=== PATIENT | male | born 1965 | race Two or more races ===

== ENCOUNTER 2018-04-24 17:40 | Observation (INO) ==
[2018-04-24] MEDS ORDERED: Dextrose 50% in Water 50 ML Vial IV.PUSH PRN (22:18)
[2018-04-25] MEDS: Morphine Inj 4 MG/ML Vial IV.PUSH PRN ×3 (00:06→23:21)
[2018-04-25] MEDS: Sod Chloride 0.9% Inj 1,000 ML IV.CONT SCH ×2 (00:06→12:45)
[2018-04-25] MEDS: Acetaminophen 500 MG Tablet PO PRN (00:28)
[2018-04-25 01:17] LABS: Troponin I 0.08 ng/mL (0.02-0.05)
[2018-04-25] MEDS: Insulin NovoLOG Aspart Correctional Sugar Inj SQ SCH ×5 (03:45→23:08)
[2018-04-25 07:32] LABS: Baso % (Auto) 0.4 % (0.0-2.0); Eos % (Auto) 0.4 % (0.0-4.0); Hematocrit 33.7 % (39.0-51.0); Hemoglobin 11.3 gm/dL (13.0-17.0); Lymph # (Auto) 0.5 th/mm3 (1.0-4.8); Lymph % (Auto) 8.7 % (9.0-44.0); Mean Corpuscular HGB Conc 33.5 % (32.0-36.0); Mean Corpuscular Hemoglobin 27.4 pg (27.0-34.0); Mean Corpuscular Volume 81.7 fL (80.0-100.0); Mean Platelet Volume 10.7 fL (7.0-11.0); Mono # (Auto) 0.6 th/mm3 (0.0-0.9); Mono % (Auto) 9.8 % (0.0-8.0); Neut # (Auto) 4.6 th/mm3 (1.8-7.7); Neut % (Auto) 80.7 % (16.0-70.0); Platelet Count 23 th/mm3 (150-450); Red Blood Count 4.13 mil/mm3 (4.50-5.90); Red Cell Distribution Width 15.3 % (11.6-17.2); White Blood Count 5.7 th/mm3 (4.0-11.0)
[2018-04-25 07:47] LABS: Potassium 3.5 meq/L (3.5-5.1)
[2018-04-25 07:53] LABS: Calcium 7.9 mg/dL (8.5-10.1)
[2018-04-25 08:01] LABS: Troponin I 0.06 ng/mL (0.02-0.05)
--- NOTE | 2018-04-25 08:37 | P.HPIM ---
History of Present Illness Primary Care Physician: Leslie Arita Chief Complaint: ' my sugar was high'. History of Present Illness: patient is a 53 y/o male with history of Cirrhosis,diabetes and hypertension who initially presented to ER with abdominal pain two days ago. he says the he received pain medication and a dose of antibiotic and then was discharged home. he says that he woke up yesterday morning and noticed that his blood sugar was 560. he drank lots of fluid but he says that he didn't take his metformin because of the IV contrast that he received the day before. he says that he checked his blood sugar again and when it was read as high he came back to ER. he says that he had some right sided chest pain. he denies any nausea, vomiting , diaphoresis. he says that he had some lower abdominal pain which somewhat improved. he denies any urinary complaints. Review of Systems All other systems reviewed negative except as stated in HPI PMFSH - History History Provided By: Patient - Medical History Medical History: Medical History (Last Reviewed 04/24/18 @ 17:53 by Airam Clarke RN) Diabetes HBP (high blood pressure) Liver cirrhosis Neuropathy Patella-femoral syndrome Platelet disorder Spleen disease - Surgical History Surgical History: Surgical History (Last Reviewed 04/24/18 @ 17:53 by Airam Clarke RN) No history of previous surgery - Family History Family History: Family History (Last Updated 04/25/18 @ 08:26 by Rigo Torres MD) Other No pertinent family history - Tobacco History Second Hand Smoke Exposure: No Smoking Status: Never smoker - Alcohol History How Often Do You Have a Drink Containing Alcohol: Monthly or less - Substance Use History Substance History: No History of Abuse Medications and Allergies Active Medications: Active Medications Acetaminophen (Tylenol) 500 mg PO Q4H PRN PRN Reason: HEADACHE Last Admin: 04/25/18 00:28 Dose: 500 mg Hydrocodone Bitart/Acetaminophen ([place] 7.5/325) 1 tab PO Q4H PRN PRN Reason: PAIN SCALE 1 TO 5 Dextrose (D50w Vial) 50 ml IV.PUSH UNSCH PRN PRN Reason: PER HYPOGLYCEMIA PROTOCOL Glucagon (Glucagon Inj) 1 mg OTHER PRN PRN PRN Reason: for Hypoglycemia Protocol Sodium Chloride (Ns Inj) 1,000 mls @ 100 mls/hr IV.CONT .Q10H LUCIO Last Admin: 04/25/18 00:06 Dose: 100 mls/hr Ceftriaxone Sodium 1,000 mg/ (Sodium Chloride) 100 mls @ 200 mls/hr IV.SIG Q24H LUCIO Last Infusion: 04/25/18 00:48 Dose: Infused Insulin Aspart (Novolog Insulin Correctional Sugar Inj) 0 unit SQ ACHS AND 3AM LUCIO; Protocol Last Admin: 04/25/18 03:45 Dose: 9 unit Morphine Sulfate (Morphine Inj) 2 mg IV.PUSH Q4H PRN PRN Reason: PAIN SCALE 6 TO 10 Last Admin: 04/25/18 03:42 Dose: 2 mg Nitroglycerin (Nitrostat Sl) 0.4 mg SL Q5M PRN PRN Reason: ANGINA Sodium Chloride (Ns Flush) 2 ml IV.FLUSH BID LUCIO Sodium Chloride (Ns Flush) 2 ml IV.FLUSH PRN PRN PRN Reason: FLUSH AFTER USING IV ACCESS Allergies Allergy/AdvReac Type Severity Reaction Status Date / Time No Known Allergies Allergy Verified 04/24/18 17:51 Home Medications Medication Instructions Recorded Confirmed Type gabapentin 300 mg PO DAILY 04/23/18 04/24/18 History lisinopril-hydrochlorothiazide 1 tab PO DAILY 04/23/18 04/24/18 History metformin 1,000 mg PO BID 04/23/18 04/24/18 History quetiapine [Seroquel] 200 mg PO DAILY 04/23/18 04/24/18 History Exam Vital signs: Vital Signs 04/25/18 00:00 04/25/18 00:59 04/25/18 03:58 Temperature 101.4 F H 99.0 F Pulse Rate 99 H 99 H 84 Respiratory Rate 18 18 Blood Pressure 121/56 L 108/60 Pulse Oximetry 94 L 95 Intake & Output 04/24/18 04/25/18 04/25/18 18:59 06:59 18:59 Intake Total 100 / 100 Balance 100 / 100 Weight 147 kg Intake: IV 100 / 100 Rocephin Inj 1,000 MG In NS Inj 100 / 100 100 ML @ 200 mls/hr IV.SIG Q24H LUCIO Rx#:[id number] Other: # Voids 4 Weight On Admission 147 kg - Constitutional no acute distress - Routine HEENT Exam Eye: Present: PERRL - Routine Neck Exam Present: supple - Routine Respiratory Exam Present: CTA bilaterally - Routine Cardiovascular Exam Present: RRR - Routine Abdominal Exam Present: soft - Routine Extremities Exam Comments: no pedal edema. - Routine Neurological Exam Present: alert, oriented X3 Results - Labs CBC & Chem 7: 04/25/18 07:00 04/25/18 07:00 Labs: Short CBC 04/25/18 Range/Units 07:00 WBC 5.7 (4.0-11.0) th/mm3 Hgb 11.3 L (13.0-17.0) gm/dL Hct 33.7 L (39.0-51.0) % Plt Count 23 L D (150-450) th/mm3 BMP 04/25/18 07:00 Sodium 131 L Potassium 3.5 Chloride 97 L Carbon Dioxide 26.0 BUN 17 Creatinine 1.40 H Calcium 7.9 L D Cardiac Enzymes 04/25/18 04/25/18 Range/Units 00:43 07:00 Total Creatine Kinase 63 50 (39-308) U/L Troponin I 0.08 H 0.06 H (0.02-0.05) ng/mL Caprini VTE Risk Assessment Caprini VTE Risk Assessment: Moderate/High Risk (score >= 2) VTE Pharmacological Exception Reason: High risk for bleeding Caprini Risk Assessment Model: Point Value = 1 Point Value = 2 Point Value = 3 Point Value = 5 Age 41-60 Minor surgery BMI > 25 kg/m2 Swollen legs Varicose veins or History of unexplained or recurrent spontaneous Oral contraceptives or hormone replacement Sepsis (< 1 month) Serious lung disease, including pneumonia (< 1 month) Abnormal pulmonary function Acute myocardial infarction Congestive heart failure (< 1 month) History of inflammatory bowel disease Medical patient at bed rest Age 61-74 Arthroscopic surgery Major open surgery (> 45 min) Laparoscopic surgery (> 45 min) Malignancy Confined to bed (> 72 hours) Immobilizing plaster cast Central venous access Age >= 75 History of VTE Family history of VTE Factor V Leiden Prothrombin [id number] Lupus anticoagulant Anticardiolipin antibodies Elevated serum homocysteine Heparin-induced thrombocytopenia Other congenital or acquired thrombophilia Stroke (< 1 month) Elective arthroplasty Hip, pelvis, or leg fracture Acute spinal cord injury (< 1 month) Prophylaxis Regimen: Total Risk Factor Score Risk Level Prophylaxis Regimen 0-1 Low Early ambulation 2 Moderate Order ONE of the following: *Sequential Compression Device (SCD) *Heparin 5000 units SQ BID 3-4 Higher Order ONE of the following medications: *Heparin 5000 units SQ TID *Enoxaparin/Lovenox 40 mg SQ daily (WT < 150 kg, CrCl > 30 mL/min) *Enoxaparin/Lovenox 30 mg SQ daily (WT < 150 kg, CrCl > 10-29 mL/min) *Enoxaparin/Lovenox 30 mg SQ BID (WT < 150 kg, CrCl > 30 mL/min) AND/OR *Sequential Compression Device (SCD) 5 or more Highest Order ONE of the following medications: *Heparin 5000 units SQ TID (Preferred with Epidurals) *Enoxaparin/Lovenox 40 mg SQ daily (WT < 150 kg, CrCl > 30 mL/min) *Enoxaparin/Lovenox 30 mg SQ daily (WT < 150 kg, CrCl > 10-29 mL/min) *Enoxaparin/Lovenox 30 mg SQ BID (WT < 150 kg, CrCl > 30 mL/min) AND *Sequential Compression Device (SCD) Assessment and Plan - Plan A/P - fever- possible UTI will continue with IV antibiotic- will check CXR and follow the cultures. recent abdominal CT with no acute intraabdominal abnormality. will repeat the blood cultures and consult ID if fever persists. -thrombocytopenia due to Cirrhosis- will consult hematology and continue to monitor. -diabetes mellitus- continue with accu-check with SSI -Cirrhosis- being f/u by GI as outpatient. -hypertension; hold lisinopril and continue to monitor the BP -acute kidney injury; improving; continue IV fluid and monitor. -DVT prophylaxis with SCD's- no chemical prophylaxis due to liver disease. Discussed Condition With: the patient.
[2018-04-25 08:46] LABS: Ovalocytes 1+; Platelet Morphology Normal (Normal)
[2018-04-25] MEDS ORDERED: Aspirin 325 MG Tablet PO SCH (09:00)
--- NOTE | 2018-04-25 10:58 | XR ---
EXAM DATE: 04/25/2018 12:00 AM EDT AGE/SEX: 53 years / Male INDICATIONS: Fever, chest pain. CLINICAL DATA: This is the patient's subsequent encounter. Patient reports that signs and symptoms h ave been present for 3 days and indicates a pain score of 7/10. MEDICAL/SURGICAL HISTORY: Diabetes. Cirrhosis. Hypertension. Neuropathy. Platlet disorder. S pleen disease. Patella-femoral syndrome. None. COMPARISON: [facility], CHEST SINGLE AP, 11/22/2017. . FINDINGS: The heart is enlarged. Mild interstitial edema is present. There is no evidence consolidation, pneumo thorax or pleural effusion. The portion of the bony skeleton visualized is unremarkable. CONCLUSION: Mild congestive failure. No alveolar consolidation to suggest an inflammatory process. Electronically signed by: Dave Waterman MD 04/25/2018 10:57 AM EDT
[2018-04-25 11:02] LABS: Chol/HDL Ratio 4.63 Ratio; HDL Cholesterol 19.4 mg/dL (40.0-60.0)
--- NOTE | 2018-04-25 14:01 | ECG ---
Date Performed: 04/25/2018 Time Performed: 07:03:59 PTAGE: 53 years EKG: Sinus rhythm NONSPECIFIC T-WAVE ABNORMALITY BORDERLINE ECG PREVIOUS TRACING : 04/25/2018 01.14 DOCTOR: Kendall Aden M.D. Interpretating Date/Time 04/25/2018 14:00:21
--- NOTE | 2018-04-25 17:16 | P.CON ---
History of Present Illness Service: Hematology Consult date: 04/25/18 Reason for Consult: Willy Primary Care Provider: Leslie Arita Chief Complaint: Evaluation of thrombocytopenia. History of Present Illness: 53-year-old gentleman with multiple medical problems including non- alcoholic cirrhosis, diabetes with complications including peripheral neuropathy and severe obesity was admitted with abdominal pain had low-grade fever and was found to have worsening thrombus cytopenia. He had a baseline platelet count of 50-60,000 from his history of cirrhosis and splenomegaly and has been followed by a washroom cleaner in [place] according to him. He had a bone marrow biopsy 2 years ago which was noncontributory per his description. I was asked to see him for his platelet count of 23,000. He is not bleeding specifically has no blood in the stool or black stools Mr. Yun is aware of his history of thrombocytopenia and risk of bleeding and hence he states that he is always on the look out for any bleeding he has not noted any. He did have low-grade fevers for the last couple of days and his blood cultures are pending at this time. [facility] - History History Provided By: Patient - Medical History Medical History: Medical History (Last Updated 04/25/18 @ 17:17 by Shon Hernandez MD) Liver cirrhosis (Acute) Diabetes HBP (high blood pressure) Neuropathy Patella-femoral syndrome Platelet disorder Spleen disease - Surgical History Surgical History: Surgical History (Last Reviewed 04/24/18 @ 17:53 by Airam Clarke RN) No history of previous surgery - Family History Family History: Family History (Last Updated 04/25/18 @ 08:26 by Rigo Torres MD) Other No pertinent family history - Tobacco History Second Hand Smoke Exposure: No Smoking Status: Never smoker - Alcohol History How Often Do You Have a Drink Containing Alcohol: Monthly or less - Substance Use History Substance History: No History of Abuse Medications and Allergies Active Medications: Active Medications Acetaminophen (Tylenol) 500 mg PO Q4H PRN PRN Reason: HEADACHE Last Admin: 04/25/18 00:28 Dose: 500 mg Hydrocodone Bitart/Acetaminophen ([place] 7.5/325) 1 tab PO Q4H PRN PRN Reason: PAIN SCALE 1 TO 5 Last Admin: 04/25/18 15:44 Dose: 1 tab Dextrose (D50w Vial) 50 ml IV.PUSH UNSCH PRN PRN Reason: PER HYPOGLYCEMIA PROTOCOL Gabapentin (Neurontin) 300 mg PO DAILY LUCIO Glucagon (Glucagon Inj) 1 mg OTHER PRN PRN PRN Reason: for Hypoglycemia Protocol Sodium Chloride (Ns Inj) 1,000 mls @ 100 mls/hr IV.CONT .Q10H LUCIO Last Admin: 04/25/18 12:45 Dose: 100 mls/hr Ceftriaxone Sodium 1,000 mg/ (Sodium Chloride) 100 mls @ 200 mls/hr IV.SIG Q24H LUCIO Last Infusion: 04/25/18 00:48 Dose: Infused Insulin Aspart (Novolog Insulin Correctional Sugar Inj) 0 unit SQ ACHS AND 3AM LUCIO; Protocol Last Admin: 04/25/18 17:12 Dose: 5 unit Insulin Detemir (Levemir Inj) 10 unit SQ HS LUCIO Morphine Sulfate (Morphine Inj) 2 mg IV.PUSH Q4H PRN PRN Reason: PAIN SCALE 6 TO 10 Last Admin: 04/25/18 03:42 Dose: 2 mg Nitroglycerin (Nitrostat Sl) 0.4 mg SL Q5M PRN PRN Reason: ANGINA Quetiapine Fumarate (Seroquel) 200 mg PO DAILY [facility] Sodium Chloride (Ns Flush) 2 ml IV.FLUSH BID LUCIO Last Admin: 04/25/18 08:40 Dose: Not Given Sodium Chloride (Ns Flush) 2 ml IV.FLUSH PRN PRN PRN Reason: FLUSH AFTER USING IV ACCESS Allergies Allergy/AdvReac Type Severity Reaction Status Date / Time No Known Allergies Allergy Verified 04/24/18 17:51 Home Medications Medication Instructions Recorded Confirmed Type gabapentin 300 mg PO DAILY 04/23/18 04/24/18 History lisinopril-hydrochlorothiazide 1 tab PO DAILY 04/23/18 04/24/18 History metformin 1,000 mg PO BID 04/23/18 04/24/18 History quetiapine [Seroquel] 200 mg PO DAILY 04/23/18 04/24/18 History Physical Exam Vital signs: Vital Signs 04/25/18 00:00 04/25/18 00:59 04/25/18 03:58 Temperature 101.4 F H 99.0 F Pulse Rate 99 H 99 H 84 Respiratory Rate 18 18 Blood Pressure 121/56 L 108/60 Pulse Oximetry 94 L 95 04/25/18 08:00 10/17/18 12:00 Temperature 100.2 F H 100.8 F H Pulse Rate 90 85 Respiratory Rate 22 20 Blood Pressure 137/71 132/71 Pulse Oximetry 98 97 Intake & Output 04/24/18 04/25/18 04/25/18 18:59 06:59 18:59 Intake Total 100 / 100 1000 / 1000 Balance 100 / 100 1000 / 1000 Weight 147 kg Intake: IV 100 / 100 1000 / 1000 NS Inj 1,000 ML @ 100 mls/hr IV 1000 / 1000 .CONT .Q10H LUCIO Rx#:[id number] Rocephin Inj 1,000 MG In NS Inj 100 / 100 100 ML @ 200 mls/hr IV.SIG Q24H LUCIO Rx#:[id number] Other: # Voids 4 Weight On Admission 147 kg Narrative: And male appearing older than stated age and chronically ill appearing no acute distress mildly uncomfortable. T-max 100.8. Present no icterus no petechia ecchymosis or bruises HEENT without oropharyngeal lesions no gum bleeding or hypertrophy no petechia in the palate H x4 no tremors heart lungs clear to auscultation abdomen is very obese soft and nontender with splenomegaly palpable for centimeter below left costal margin abdomen is distended firm and nontender without palpable other organomegaly. Extremity is no edema or evidence of DVTs Labs reviewed platelet count 23,000. Assessment and Plan - Attending Attestation Impression chronic thrombocytopenia in a gentleman with history of nonalcoholic cirrhosis with splenomegaly. Platelet counts have been in the range of 50-60, 000 currently he is admitted with abdominal pain and fever with possible infection causing his worsening thrombocytopenia in addition to his baseline. He is not having active bleeding at this time. Will rule out DIC and transfuse him with cryoprecipitate or FFP only if he has active bleeding demonstrated. Drug-induced worsening thrombocytopenia is felt to be less likely at this time. In addition he already had a bone marrow biopsy 2 years ago and apparently that is noncontributory not a anticipate of primary bone marrow problem this gentleman and hence will not recommend that at this time I will order the DIC workup and he will be seen in follow-up in the hospital. Discussed with patient and answered all his questions
--- NOTE | 2018-04-25 18:40 | ECG ---
Date Performed: 04/25/2018 Time Performed: 01:14:03 PTAGE: 53 years EKG: Sinus rhythm MARKED LEFT AXIS DEVIATION NONSPECIFIC T-WAVE ABNORMALITY ABNORMAL ECG PREVIOUS TRACING 04/25/2018 @ 07.03.59 Since the previous tracing, no significant change noted DOCTOR: Nikunj Boyce Interpretating Date/Time 04/25/2018 18:40:02
--- NOTE | 2018-04-25 18:54 | P.CONID ---
History of Present Illness Service: Infectious Disease Consult date: 04/25/18 Requesting Physician: Rigo Torres Primary Care Provider: Leslie Arita Chief Complaint: Evaluation of thrombocytopenia. PMFSH - History History Provided By: Patient - Medical History Medical History: Medical History (Last Updated 04/25/18 @ 17:17 by Shon Hernandez MD) Liver cirrhosis (Acute) Diabetes HBP (high blood pressure) Neuropathy Patella-femoral syndrome Platelet disorder Spleen disease - Surgical History Surgical History: Surgical History (Last Reviewed 04/24/18 @ 17:53 by Airam Clarke RN) No history of previous surgery - Family History Family History: Family History (Last Updated 04/25/18 @ 08:26 by Rigo Torres MD) Other No pertinent family history - Tobacco History Second Hand Smoke Exposure: No Smoking Status: Never smoker - Alcohol History How Often Do You Have a Drink Containing Alcohol: Monthly or less - Substance Use History Substance History: No History of Abuse Medications and Allergies Active Medications: Active Medications Acetaminophen (Tylenol) 500 mg PO Q4H PRN PRN Reason: HEADACHE Last Admin: 04/25/18 00:28 Dose: 500 mg Hydrocodone Bitart/Acetaminophen ([place] 7.5/325) 1 tab PO Q4H PRN PRN Reason: PAIN SCALE 1 TO 5 Last Admin: 04/25/18 15:44 Dose: 1 tab Dextrose (D50w Vial) 50 ml IV.PUSH UNSCH PRN PRN Reason: PER HYPOGLYCEMIA PROTOCOL Gabapentin (Neurontin) 300 mg PO DAILY LUCIO Glucagon (Glucagon Inj) 1 mg OTHER PRN PRN PRN Reason: for Hypoglycemia Protocol Sodium Chloride (Ns Inj) 1,000 mls @ 100 mls/hr IV.CONT .Q10H LUCIO Last Admin: 04/25/18 12:45 Dose: 100 mls/hr Ampicillin Sodium/Sulbactam (Sodium 3 gm/ Sodium Chloride) 100 mls @ 200 mls/ hr IV.SIG Q6H LUCIO Insulin Aspart (Novolog Insulin Correctional Sugar Inj) 0 unit SQ ACHS AND 3AM LUCIO; Protocol Last Admin: 04/25/18 17:12 Dose: 5 unit Insulin Detemir (Levemir Inj) 10 unit SQ HS LUCIO Morphine Sulfate (Morphine Inj) 2 mg IV.PUSH Q4H PRN PRN Reason: PAIN SCALE 6 TO 10 Last Admin: 04/25/18 03:42 Dose: 2 mg Nitroglycerin (Nitrostat Sl) 0.4 mg SL Q5M PRN PRN Reason: ANGINA Quetiapine Fumarate (Seroquel) 200 mg PO DAILY LUCIO Sodium Chloride (Ns Flush) 2 ml IV.FLUSH BID LUCIO Last Admin: 04/25/18 08:40 Dose: Not Given Sodium Chloride (Ns Flush) 2 ml IV.FLUSH PRN PRN PRN Reason: FLUSH AFTER USING IV ACCESS Allergies Allergy/AdvReac Type Severity Reaction Status Date / Time No Known Allergies Allergy Verified 04/24/18 17:51 Home Medications Medication Instructions Recorded Confirmed Type gabapentin 300 mg PO DAILY 04/23/18 04/24/18 History lisinopril-hydrochlorothiazide 1 tab PO DAILY 04/23/18 04/24/18 History metformin 1,000 mg PO BID 04/23/18 04/24/18 History quetiapine [Seroquel] 200 mg PO DAILY 04/23/18 04/24/18 History Exam Vital signs: Vital Signs 04/25/18 00:00 04/25/18 00:59 04/25/18 03:58 Temperature 101.4 F H 99.0 F Pulse Rate 99 H 99 H 84 Respiratory Rate 18 18 Blood Pressure 121/56 L 108/60 Pulse Oximetry 94 L 95 04/25/18 08:00 04/25/18 12:00 04/25/18 16:00 Temperature 100.2 F H 100.8 F H 99.5 F Pulse Rate 90 85 85 Respiratory Rate 22 20 20 Blood Pressure 137/71 132/71 142/75 H Pulse Oximetry 98 97 97 Intake & Output 04/24/18 04/25/18 04/25/18 18:59 06:59 18:59 Intake Total 100 / 100 1000 / 1000 Balance 100 / 100 1000 / 1000 Weight 147 kg Intake: IV 100 / 100 1000 / 1000 NS Inj 1,000 ML @ 100 mls/hr IV 1000 / 1000 .CONT .Q10H LUCIO Rx#:[id number] Rocephin Inj 1,000 MG In NS Inj 100 / 100 100 ML @ 200 mls/hr IV.SIG Q24H LUCIO Rx#:[id number] Other: # Voids 4 Weight On Admission 147 kg Results - Labs CBC & Chem 7: 04/25/18 07:00 04/25/18 07:00 Labs: Laboratory Results - last 24 hr 04/24/18 04/25/18 04/25/18 23:44 00:43 03:17 CBC w Diff WBC RBC Hgb Hct MCV MCH MCHC RDW Plt Count MPV Neut % (Auto) Lymph % (Auto) [place] % (Auto) Eos % (Auto) Baso % (Auto) Neut # (Auto) Lymph # (Auto) [place] # (Auto) Eos # (Auto) Baso # (Auto) WBC Differential Diff Scan Differential Comment Platelet Estimate Platelet Morphology Ovalocytes Sodium Potassium Chloride Carbon Dioxide Anion Gap BUN Creatinine Estimated GFR POC Glucose 398 H 411 H Random Glucose Lactic Acid Calcium Total Creatine Kinase 63 Troponin I 0.08 H Triglycerides Cholesterol LDL Cholesterol, Calc HDL Cholesterol Cholesterol/HDL Ratio 04/25/18 04/25/18 04/25/18 07:00 07:00 12:55 CBC w Diff Slide review pending WBC 5.7 RBC 4.13 L Hgb 11.3 L Hct 33.7 L MCV 81.7 MCH 27.4 MCHC 33.5 RDW 15.3 Plt Count 23 L D MPV 10.7 Neut % (Auto) 80.7 H Lymph % (Auto) 8.7 L [place] % (Auto) 9.8 H Eos % (Auto) 0.4 Baso % (Auto) 0.4 Neut # (Auto) 4.6 Lymph # (Auto) 0.5 L [place] # (Auto) 0.6 Eos # (Auto) 0.0 Baso # (Auto) 0.0 WBC Differential . Diff Scan Auto diff confirmed Differential Comment . Platelet Estimate Low L Platelet Morphology Normal Ovalocytes 1+ H Sodium 131 L Potassium 3.5 Chloride 97 L Carbon Dioxide 26.0 Anion Gap 8 BUN 17 Creatinine 1.40 H Estimated GFR 53 L POC Glucose 280 H Random Glucose 318 H D Lactic Acid Calcium 7.9 L D Total Creatine Kinase 50 Troponin I 0.06 H Triglycerides 135 Cholesterol 90 L LDL Cholesterol, Calc 44 HDL Cholesterol 19.4 L Cholesterol/HDL Ratio 4.63 04/25/18 04/25/18 13:33 17:07 CBC w Diff WBC RBC Hgb Hct MCV MCH MCHC RDW Plt Count MPV Neut % (Auto) Lymph % (Auto) [place] % (Auto) Eos % (Auto) Baso % (Auto) Neut # (Auto) Lymph # (Auto) [place] # (Auto) Eos # (Auto) Baso # (Auto) WBC Differential Diff Scan Differential Comment Platelet Estimate Platelet Morphology Ovalocytes Sodium Potassium Chloride Carbon Dioxide Anion Gap BUN Creatinine Estimated GFR POC Glucose 260 H Random Glucose Lactic Acid 1.4 Calcium Total Creatine Kinase Troponin I Triglycerides Cholesterol LDL Cholesterol, Calc HDL Cholesterol Cholesterol/HDL Ratio - Imaging Impressions Chest X-Ray 04/25/18 00:00 CONCLUSION: Mild congestive failure. No alveolar consolidation to suggest an inflammatory process. Assessment and Plan (1) Fever Status: Acute Code(s): R50.9 - Fever, unspecified (2) UTI (urinary tract infection) Status: Acute Code(s): N39.0 - Urinary tract infection, site not specified (3) Diabetes Status: Acute Code(s): E11.9 - Type 2 diabetes mellitus without complications (4) Liver cirrhosis Status: Acute Code(s): K74.60 - Unspecified cirrhosis of liver - Plan 1. Follow Blood cultures 2. Follow Urine culture 3. Check a Influenza test 4. Stop Ceftriaxone 5.Start Unasyn 3 g IV q6hrs
[2018-04-25 18:57] LABS: Activated Partial Thrombo Time 33.5 sec (24.3-30.1); INR 1.2 Ratio; Prothrombin Time 11.9 sec (9.8-11.6)
[2018-04-25 19:13] LABS: D-Dimer 3.42 mg/L FEU (0.00-0.50)
[2018-04-25 20:19] LABS: Albumin 2.3 g/dL (3.4-5.0)
[2018-04-25 20:24] LABS: Total Protein 7.1 g/dL (6.4-8.2)
[2018-04-25 21:53] LABS: Hemoglobin A1c 9.7 % (4.3-6.0)
[2018-04-25] MEDS: Ampicillin/Sulbactam Inj 3 GM in Sodium Chloride 0.9% Inj 100 ML IV.SIG SCH (23:04)
[2018-04-25] MEDS: Insulin Detemir Inj 1,000 UNIT/10 ML Vial SQ SCH (23:07)
[2018-04-26] MEDS: Ampicillin/Sulbactam Inj 3 GM in Sodium Chloride 0.9% Inj 100 ML IV.SIG SCH ×4 (03:19→20:54)
[2018-04-26] MEDS: Morphine Inj 4 MG/ML Vial IV.PUSH PRN ×3 (03:19→21:36)
[2018-04-26] MEDS: Insulin NovoLOG Aspart Correctional Sugar Inj SQ SCH ×5 (03:23→20:53)
[2018-04-26] MEDS: Gabapentin 300 MG Capsule PO SCH (08:03)
--- NOTE | 2018-04-26 09:17 | P.PNID ---
Subjective Remarks: Still with low grade fever Generalized bodyaches and headache Antibiotics: Unasyn Lines: Peripheral IV line Past Medical History: Cirrhosis Thrombocytopenia Allergies/Adverse Reactions: Allergies No Known Allergies Allergy (Verified 04/24/18 17:51) Objective Vital Signs 04/25/18 12:00 04/25/18 16:00 04/25/18 19:04 Temperature 100.8 F H 99.5 F Pulse Rate 80 85 86 Respiratory Rate 20 20 Blood Pressure 132/71 142/75 H Pulse Oximetry 97 97 04/25/18 20:00 04/26/18 00:00 04/26/18 04:00 Temperature 99.2 F 100.1 F H 98.8 F Pulse Rate 77 86 80 Respiratory Rate 16 16 16 Blood Pressure 121/64 118/66 112/64 Pulse Oximetry 94 L 94 L 95 Intake & Output 04/25/18 04/26/18 04/26/18 18:59 06:59 18:59 Intake Total 1000 / 1000 1920 / 1920 100 / 100 Balance 1000 / 1000 1920 / 1920 100 / 100 Weight 148.3 kg Intake: IV 1000 / 1000 1200 / 1200 100 / 100 NS Inj 1,000 ML @ 100 mls/hr IV 1000 / 1000 .CONT .Q10H LUCIO Rx#:[id number] Unasyn Inj 3 GM In NS Inj 100 200 / 200 100 / 100 ML @ 200 mls/hr IV.SIG Q6H LUCIO Rx#:[id number] Oral 720 / 720 Other: # Voids 3 2 04/25/18 18:18 Blood - Peripheral Aerobic Blood Culture - Pending 04/25/18 18:18 Blood - Peripheral Anaerobic Blood Culture - Pending 04/25/18 15:10 Blood - Peripheral Aerobic Blood Culture - Pending 04/25/18 15:10 Blood - Peripheral Anaerobic Blood Culture - Pending Lab - Hematology Results 04/25/18 07:00 CBC w Diff Slide review pending WBC 5.7 RBC 4.13 L Hgb 11.3 L Hct 33.7 L MCV 81.7 MCH 27.4 MCHC 33.5 RDW 15.3 Plt Count 23 L D MPV 10.7 Neut % (Auto) 80.7 H Lymph % (Auto) 8.7 L [place] % (Auto) 9.8 H Eos % (Auto) 0.4 Baso % (Auto) 0.4 Neut # (Auto) 4.6 Lymph # (Auto) 0.5 L [place] # (Auto) 0.6 Eos # (Auto) 0.0 Baso # (Auto) 0.0 WBC Differential . Diff Scan Auto diff confirmed Differential Comment . Platelet Estimate Low L Platelet Morphology Normal Ovalocytes 1+ H Lab - Chemistry Results 04/24/18 04/25/18 04/25/18 23:44 00:43 03:17 Sodium Potassium Chloride Carbon Dioxide Anion Gap BUN Creatinine Estimated GFR POC Glucose 398 H 411 H Random Glucose Hemoglobin A1c Lactic Acid Calcium Total Bilirubin Direct Bilirubin Indirect Bilirubin AST ALT Alkaline Phosphatase Total Creatine Kinase 63 Troponin I 0.08 H Total Protein Albumin Triglycerides Cholesterol LDL Cholesterol, Calc HDL Cholesterol Cholesterol/HDL Ratio 04/25/18 04/25/18 04/25/18 07:00 07:00 12:55 Sodium 131 L Potassium 3.5 Chloride 97 L Carbon Dioxide 26.0 Anion Gap 8 BUN 17 Creatinine 1.40 H Estimated GFR 53 L POC Glucose 280 H Random Glucose 318 H D Hemoglobin A1c 9.7 H Lactic Acid Calcium 7.9 L D Total Bilirubin Direct Bilirubin Indirect Bilirubin AST ALT Alkaline Phosphatase Total Creatine Kinase 50 Troponin I 0.06 H Total Protein Albumin Triglycerides 135 Cholesterol 90 L LDL Cholesterol, Calc 44 HDL Cholesterol 19.4 L Cholesterol/HDL Ratio 4.63 04/25/18 04/25/18 04/25/18 13:33 17:07 19:50 Sodium Potassium Chloride Carbon Dioxide Anion Gap BUN Creatinine Estimated GFR POC Glucose 260 H Random Glucose Hemoglobin A1c Lactic Acid 1.4 Calcium Total Bilirubin 1.0 Direct Bilirubin 0.5 H Indirect Bilirubin 0.5 AST 13 L ALT 27 Alkaline Phosphatase 70 Total Creatine Kinase Troponin I Total Protein 7.1 D Albumin 2.3 L Triglycerides Cholesterol LDL Cholesterol, Calc HDL Cholesterol Cholesterol/HDL Ratio 04/25/18 04/26/18 04/26/18 23:07 03:23 07:38 Sodium Potassium Chloride Carbon Dioxide Anion Gap BUN Creatinine Estimated GFR POC Glucose 286 H 254 H 241 H Random Glucose Hemoglobin A1c Lactic Acid Calcium Total Bilirubin Direct Bilirubin Indirect Bilirubin AST ALT Alkaline Phosphatase Total Creatine Kinase Troponin I Total Protein Albumin Triglycerides Cholesterol LDL Cholesterol, Calc HDL Cholesterol Cholesterol/HDL Ratio Imaging: ITS Impressions Chest X-Ray 04/25/18 00:00 CONCLUSION: Mild congestive failure. No alveolar consolidation to suggest an inflammatory process. Physical Exam: Alert, Oriented x 3 Obese No thrush Chest : BSBE Heart S1 S2 normal Abd: Ascites Assessment and Plan (1) Fever Status: Acute Code(s): R50.9 - Fever, unspecified (2) UTI (urinary tract infection) Status: Acute Code(s): N39.0 - Urinary tract infection, site not specified (3) Diabetes Status: Acute Code(s): E11.9 - Type 2 diabetes mellitus without complications (4) Liver cirrhosis Status: Acute Code(s): K74.60 - Unspecified cirrhosis of liver - Plan 1. Follow Blood cultures- so far negative 2. Follow Urine culture- growing Strep 3. Check a Influenza test- result pending 4. Continue Unasyn 3 g IV q6hrs
[2018-04-26 09:59] LABS: Potassium 3.3 meq/L (3.5-5.1)
[2018-04-26 10:01] LABS: Baso % (Auto) 0.8 % (0.0-2.0); Calcium 7.6 mg/dL (8.5-10.1); Eos # (Auto) 0.1 th/mm3 (0.0-0.4); Eos % (Auto) 1.5 % (0.0-4.0); Lymph # (Auto) 0.5 th/mm3 (1.0-4.8); Lymph % (Auto) 13.1 % (9.0-44.0); Mean Corpuscular HGB Conc 32.2 % (32.0-36.0); Mean Platelet Volume 9.1 fL (7.0-11.0); Mono # (Auto) 0.4 th/mm3 (0.0-0.9); Mono % (Auto) 10.4 % (0.0-8.0); Neut # (Auto) 2.9 th/mm3 (1.8-7.7); Neut % (Auto) 74.2 % (16.0-70.0); Platelet Count 30 th/mm3 (150-450); Red Blood Count 4.05 mil/mm3 (4.50-5.90); Red Cell Distribution Width 14.7 % (11.6-17.2); White Blood Count 3.9 th/mm3 (4.0-11.0)
[2018-04-26 10:02] LABS: Carbon Dioxide 26.2 meq/L (21.0-32.0)
--- NOTE | 2018-04-26 10:42 | P.PNIM ---
Subjective Interval history: f/u; fever in no acute distress. complaining of generalized bodyache. T max 100.1. Physical Exam Vital signs: Vital Signs 04/25/18 12:00 04/25/18 16:00 04/25/18 19:04 Temperature 100.8 F H 99.5 F Pulse Rate 80 85 86 Respiratory Rate 20 20 Blood Pressure 132/71 142/75 H Pulse Oximetry 97 97 04/25/18 20:00 04/26/18 00:00 04/26/18 04:00 Temperature 99.2 F 100.1 F H 98.8 F Pulse Rate 77 86 80 Respiratory Rate 16 16 16 Blood Pressure 121/64 118/66 112/64 Pulse Oximetry 94 L 94 L 95 04/26/18 08:00 Temperature 98.8 F Pulse Rate 76 Respiratory Rate 23 Blood Pressure 135/72 Pulse Oximetry 95 Intake & Output 04/25/18 04/26/18 04/26/18 18:59 06:59 18:59 Intake Total 1000 / 1000 1920 / 1920 100 / 100 Balance 1000 / 1000 1920 / 1920 100 / 100 Weight 148.3 kg Intake: IV 1000 / 1000 1200 / 1200 100 / 100 NS Inj 1,000 ML @ 100 mls/hr IV 1000 / 1000 .CONT .Q10H LUCIO Rx#:[id number] Unasyn Inj 3 GM In NS Inj 100 200 / 200 100 / 100 ML @ 200 mls/hr IV.SIG Q6H LUCIO Rx#:[id number] Oral 720 / 720 Other: # Voids 3 2 - Constitutional no acute distress - Routine Respiratory Exam Present: CTA bilaterally - Routine Cardiovascular Exam Present: RRR - Routine Abdominal Exam Present: soft - Routine Extremities Exam Comments: no pedal edema. - Routine Neurological Exam Present: alert, oriented X3 Results - Labs CBC & Chem 7: 04/26/18 08:40 04/26/18 08:40 Laboratory Results - last 24 hr 04/25/18 04/25/18 04/25/18 07:00 07:00 12:55 CBC w Diff WBC RBC Hgb Hct MCV MCH MCHC RDW Plt Count MPV Neut % (Auto) Lymph % (Auto) [place] % (Auto) Eos % (Auto) Baso % (Auto) Neut # (Auto) Lymph # (Auto) [place] # (Auto) Eos # (Auto) Baso # (Auto) WBC Differential Diff Scan Differential Comment PT INR APTT Fibrinogen D-Dimer Quant (PE/DVT) Sodium Potassium Chloride Carbon Dioxide Anion Gap BUN Creatinine Estimated GFR POC Glucose 280 H Random Glucose Hemoglobin A1c 9.7 H Lactic Acid Calcium Total Bilirubin Direct Bilirubin Indirect Bilirubin AST ALT Alkaline Phosphatase Total Protein Albumin Triglycerides 135 Cholesterol 90 L LDL Cholesterol, Calc 44 HDL Cholesterol 19.4 L Cholesterol/HDL Ratio 4.63 04/25/18 04/25/18 04/25/18 13:33 17:07 18:15 CBC w Diff WBC RBC Hgb Hct MCV MCH MCHC RDW Plt Count MPV Neut % (Auto) Lymph % (Auto) [place] % (Auto) Eos % (Auto) Baso % (Auto) Neut # (Auto) Lymph # (Auto) [place] # (Auto) Eos # (Auto) Baso # (Auto) WBC Differential Diff Scan Differential Comment PT 11.9 H INR 1.2 APTT 33.5 H Fibrinogen 610 H D-Dimer Quant (PE/DVT) 3.42 H Sodium Potassium Chloride Carbon Dioxide Anion Gap BUN Creatinine Estimated GFR POC Glucose 260 H Random Glucose Hemoglobin A1c Lactic Acid 1.4 Calcium Total Bilirubin Direct Bilirubin Indirect Bilirubin AST ALT Alkaline Phosphatase Total Protein Albumin Triglycerides Cholesterol LDL Cholesterol, Calc HDL Cholesterol Cholesterol/HDL Ratio 04/25/18 04/25/18 04/26/18 19:50 23:07 03:23 CBC w Diff WBC RBC Hgb Hct MCV MCH MCHC RDW Plt Count MPV Neut % (Auto) Lymph % (Auto) [place] % (Auto) Eos % (Auto) Baso % (Auto) Neut # (Auto) Lymph # (Auto) [place] # (Auto) Eos # (Auto) Baso # (Auto) WBC Differential Diff Scan Differential Comment PT INR APTT Fibrinogen D-Dimer Quant (PE/DVT) Sodium Potassium Chloride Carbon Dioxide Anion Gap BUN Creatinine Estimated GFR POC Glucose 286 H 254 H Random Glucose Hemoglobin A1c Lactic Acid Calcium Total Bilirubin 1.0 Direct Bilirubin 0.5 H Indirect Bilirubin 0.5 AST 13 L ALT 27 Alkaline Phosphatase 70 Total Protein 7.1 D Albumin 2.3 L Triglycerides Cholesterol LDL Cholesterol, Calc HDL Cholesterol Cholesterol/HDL Ratio 04/26/18 04/26/18 04/26/18 07:38 08:40 08:40 CBC w Diff Slide review pending WBC 3.9 L RBC 4.05 L Hgb 11.0 L Hct 34.0 L MCV 84.0 MCH 27.0 MCHC 32.2 RDW 14.7 Plt Count 30 L D MPV 9.1 Neut % (Auto) 74.2 H Lymph % (Auto) 13.1 [place] % (Auto) 10.4 H Eos % (Auto) 1.5 Baso % (Auto) 0.8 Neut # (Auto) 2.9 Lymph # (Auto) 0.5 L [place] # (Auto) 0.4 Eos # (Auto) 0.1 Baso # (Auto) 0.0 WBC Differential . Diff Scan Auto diff confirmed Differential Comment . PT INR APTT Fibrinogen D-Dimer Quant (PE/DVT) Sodium 134 L Potassium 3.3 L Chloride 99 Carbon Dioxide 26.2 Anion Gap 9 BUN 14 Creatinine 1.00 Estimated GFR 78 L POC Glucose 241 H Random Glucose 283 H Hemoglobin A1c Lactic Acid Calcium 7.6 L Total Bilirubin Direct Bilirubin Indirect Bilirubin AST ALT Alkaline Phosphatase Total Protein Albumin Triglycerides Cholesterol LDL Cholesterol, Calc HDL Cholesterol Cholesterol/HDL Ratio - Imaging Impressions Chest X-Ray 04/25/18 00:00 CONCLUSION: Mild congestive failure. No alveolar consolidation to suggest an inflammatory process. Assessment and Plan - Plan A/P - fever- possible UTI will continue with IV antibiotic- UC with strep- blood cultures from 04/25 pending- CXR with no infiltrate. recent abdominal CT with no acute intraabdominal abnormality. started on Unasyn- flu test pending- ID following. -thrombocytopenia due to Cirrhosis- no active bleed- continue to monitor closely- Hematology consult appreciated. -diabetes mellitus- continue with accu-check with SSI- A1c pending. -Cirrhosis- being f/u by GI as outpatient. -hypertension; hold lisinopril and continue to monitor the BP -acute kidney injury; improving; continue IV fluid and monitor. -mild hypokalemia; will replace. -DVT prophylaxis with SCD's- no chemical prophylaxis due to liver disease/ thrombocytopenia. Discharge Planning: still with on and off fever- not ready for discharge yet.
[2018-04-26 12:39] LABS: Bilirubin,Urine Negative (Negative); Clarity,Urine Clear (Clear); Color,Urine Yellow (Yellw/Straw); Leukocyte Esterase,Urine Negative (Negative); Nitrite,Urine Negative (Negative)
[2018-04-26 12:45] LABS: RBC,Urine 0-3 /hpf (0-3)
--- NOTE | 2018-04-26 18:49 | P.PNONC ---
Subjective Interval history: Resting in bed Reports that he is feeling better since hospital admission. Objective Vital Signs/Intake & Output: Vital Signs 04/25/18 19:04 04/25/18 20:00 04/26/18 00:00 Temperature 99.2 F 100.1 F H Pulse Rate 86 77 86 Respiratory Rate 16 16 Blood Pressure 121/64 118/66 Pulse Oximetry 94 L 94 L 04/26/18 04:00 04/26/18 08:00 04/26/18 11:32 Temperature 98.8 F 98.8 F Pulse Rate 80 76 82 Respiratory Rate 16 23 Blood Pressure 112/64 135/72 Pulse Oximetry 95 95 04/26/18 12:00 04/26/18 16:00 Temperature 98.3 F 98.6 F Pulse Rate 90 78 Respiratory Rate 20 20 Blood Pressure 107/59 L 125/59 L Pulse Oximetry 94 L 98 Intake & Output 04/25/18 04/26/18 04/26/18 18:59 06:59 18:59 Intake Total 2440 / 2440 1920 / 1920 413 / 413 Output Total Balance 2439 / 2439 1920 / 1920 413 / 413 Weight 148.3 kg Intake: IV 1000 / 1000 1200 / 1200 200 / 200 NS Inj 1,000 ML @ 100 mls/hr IV 1000 / 1000 .CONT .Q10H LUCIO Rx#:[id number] Unasyn Inj 3 GM In NS Inj 100 200 / 200 200 / 200 ML @ 200 mls/hr IV.SIG Q6H LUCIO Rx#:[id number] Oral 1440 / 1440 720 / 720 Other 213 / 213 Output: Stool Other: Other Intake Source Saline Solution # Voids 8 2 Result Diagrams: 04/26/18 08:40 04/26/18 08:40 Laboratory Results: Laboratory Results - last 24 hr 04/25/18 04/25/18 04/25/18 07:00 18:15 19:50 CBC w Diff WBC RBC Hgb Hct MCV MCH MCHC RDW Plt Count MPV Neut % (Auto) Lymph % (Auto) [place] % (Auto) Eos % (Auto) Baso % (Auto) Neut # (Auto) Lymph # (Auto) [place] # (Auto) Eos # (Auto) Baso # (Auto) WBC Differential Diff Scan Differential Comment PT 11.9 H INR 1.2 APTT 33.5 H Fibrinogen 610 H D-Dimer Quant (PE/DVT) 3.42 H Sodium Potassium Chloride Carbon Dioxide Anion Gap BUN Creatinine Estimated GFR POC Glucose Random Glucose Hemoglobin A1c 9.7 H Calcium Total Bilirubin 1.0 Direct Bilirubin 0.5 H Indirect Bilirubin 0.5 AST 13 L ALT 27 Alkaline Phosphatase 70 Total Protein 7.1 D Albumin 2.3 L Urine Color Urine Clarity Urine pH Ur Specific [place] Urine Protein Urine Glucose (UA) Urine Ketones Urine Occult Blood Urine Nitrate Urine Bilirubin Urine Urobilinogen Ur Leukocyte Esterase Urine RBC Urine WBC Urine WBC Clumps Ur Microscopic Review 04/25/18 04/26/18 04/26/18 23:07 03:23 07:38 CBC w Diff WBC RBC Hgb Hct MCV MCH MCHC RDW Plt Count MPV Neut % (Auto) Lymph % (Auto) [place] % (Auto) Eos % (Auto) Baso % (Auto) Neut # (Auto) Lymph # (Auto) [place] # (Auto) Eos # (Auto) Baso # (Auto) WBC Differential Diff Scan Differential Comment PT INR APTT Fibrinogen D-Dimer Quant (PE/DVT) Sodium Potassium Chloride Carbon Dioxide Anion Gap BUN Creatinine Estimated GFR POC Glucose 286 H 254 H 241 H Random Glucose Hemoglobin A1c Calcium Total Bilirubin Direct Bilirubin Indirect Bilirubin AST ALT Alkaline Phosphatase Total Protein Albumin Urine Color Urine Clarity Urine pH Ur Specific [place] Urine Protein Urine Glucose (UA) Urine Ketones Urine Occult Blood Urine Nitrate Urine Bilirubin Urine Urobilinogen Ur Leukocyte Esterase Urine RBC Urine WBC Urine WBC Clumps Ur Microscopic Review 04/26/18 04/26/18 04/26/18 08:40 08:40 11:55 CBC w Diff Slide review pending WBC 3.9 L RBC 4.05 L Hgb 11.0 L Hct 34.0 L MCV 84.0 MCH 27.0 MCHC 32.2 RDW 14.7 Plt Count 30 L D MPV 9.1 Neut % (Auto) 74.2 H Lymph % (Auto) 13.1 [place] % (Auto) 10.4 H Eos % (Auto) 1.5 Baso % (Auto) 0.8 Neut # (Auto) 2.9 Lymph # (Auto) 0.5 L [place] # (Auto) 0.4 Eos # (Auto) 0.1 Baso # (Auto) 0.0 WBC Differential . Diff Scan Auto diff confirmed Differential Comment . PT INR APTT Fibrinogen D-Dimer Quant (PE/DVT) Sodium 134 L Potassium 3.3 L Chloride 99 Carbon Dioxide 26.2 Anion Gap 9 BUN 14 Creatinine 1.00 Estimated GFR 78 L POC Glucose 404 H Random Glucose 283 H Hemoglobin A1c Calcium 7.6 L Total Bilirubin Direct Bilirubin Indirect Bilirubin AST ALT Alkaline Phosphatase Total Protein Albumin Urine Color Urine Clarity Urine pH Ur Specific [place] Urine Protein Urine Glucose (UA) Urine Ketones Urine Occult Blood Urine Nitrate Urine Bilirubin Urine Urobilinogen Ur Leukocyte Esterase Urine RBC Urine WBC Urine WBC Clumps Ur Microscopic Review 04/26/18 04/26/18 12:15 17:18 CBC w Diff WBC RBC Hgb Hct MCV MCH MCHC RDW Plt Count MPV Neut % (Auto) Lymph % (Auto) [place] % (Auto) Eos % (Auto) Baso % (Auto) Neut # (Auto) Lymph # (Auto) [place] # (Auto) Eos # (Auto) Baso # (Auto) WBC Differential Diff Scan Differential Comment PT INR APTT Fibrinogen D-Dimer Quant (PE/DVT) Sodium Potassium Chloride Carbon Dioxide Anion Gap BUN Creatinine Estimated GFR POC Glucose 356 H Random Glucose Hemoglobin A1c Calcium Total Bilirubin Direct Bilirubin Indirect Bilirubin AST ALT Alkaline Phosphatase Total Protein Albumin Urine Color Yellow Urine Clarity Clear Urine pH 6.0 Ur Specific [place] 1.010 Urine Protein Negative Urine Glucose (UA) 1000 or greater H Urine Ketones Trace H Urine Occult Blood Small H Urine Nitrate Negative Urine Bilirubin Negative Urine Urobilinogen 1.0 Ur Leukocyte Esterase Negative Urine RBC 0-3 Urine WBC 9-20 H Urine WBC Clumps Few H Ur Microscopic Review Microscopic reviewed Culture Results: Microbiology 04/25/18 18:18 Aerobic Blood Culture - Preliminary Blood - Peripheral No growth in 1 day Anaerobic Blood Culture - Preliminary No growth in 1 day 04/25/18 15:10 Aerobic Blood Culture - Preliminary Blood - Peripheral No growth in 1 day Anaerobic Blood Culture - Preliminary No growth in 1 day Medications: Active Medications Generic Name Dose Route Start Last Admin Trade Name Freq PRN Reason Stop Dose Admin Acetaminophen 500 mg 04/24/18 22:07 04/25/18 00:28 Tylenol PO 500 mg Q4H PRN Administration HEADACHE Hydrocodone Bitart/Acetaminophen 1 tab 04/24/18 22:07 04/25/18 15:44 [place] 7.5/325 PO 1 tab Q4H PRN Administration PAIN SCALE 1 TO 5 Gabapentin 300 mg 04/26/18 09:00 04/26/18 08:03 Neurontin PO 300 mg DAILY LUCIO Administration Sodium Chloride 1,000 mls @ 100 mls/hr 04/24/18 22:15 04/25/18 19:08 Ns Inj IV.CONT Infused .Q10H LUCIO Infusion Ampicillin Sodium/Sulbactam 100 mls @ 200 mls/hr 04/25/18 20:00 04/26/18 13: 49 Sodium 3 gm/ Sodium Chloride IV.SIG Infused Q6H LUCIO Infusion Insulin Aspart 0 unit 04/25/18 03:00 04/26/18 17:27 Novolog Insulin Correctional Sugar Inj SQ 7 unit ACHS AND 3AM LUCIO Administration Protocol Insulin Detemir 10 unit 04/25/18 21:00 04/25/18 23:07 Levemir Inj SQ 10 unit HS LUCIO Administration Morphine Sulfate 2 mg 04/24/18 22:07 04/26/18 07:34 Morphine Inj IV.PUSH 2 mg Q4H PRN Administration PAIN SCALE 6 TO 10 Quetiapine Fumarate 200 mg 04/26/18 09:00 04/26/18 08:03 Seroquel PO 200 mg DAILY LUCIO Administration Sodium Chloride 2 ml 04/25/18 09:00 04/26/18 08:02 Ns Flush IV.FLUSH Not Given BID LUCIO Sodium Chloride 2 ml 04/24/18 22:07 04/26/18 07:35 Ns Flush IV.FLUSH 2 ml PRN PRN Administration FLUSH AFTER USING IV ACCESS Objective Remarks: GENERAL: Well-nourished, well-developed patient. SKIN: Warm and dry. HEAD: Normocephalic. EYES: No scleral icterus. No injection or drainage. RESPIRATORY: No accessory muscle use. MUSCULOSKELETAL: Adequate muscle tone. NEUROLOGICAL: No obvious focal deficit. Awake, alert, and oriented x3. PSYCHIATRIC: Appropriate mood and affect; insight and judgment normal. Assessment/Plan - Plan TCP: no evidence of DIC. No recent heparin exposure. No evidence of hemolysis. 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 Acute worsening with multiple factor contiributing including acute infection, abx. cotinue to follow. Will check, B12, folate for nutrient deficiencies.
[2018-04-26] MEDS: Insulin Detemir Inj 1,000 UNIT/10 ML Vial SQ SCH (20:49)
[2018-04-27] MEDS: Acetaminophen 500 MG Tablet PO PRN ×2 (01:02→07:38)
[2018-04-27] MEDS: Ampicillin/Sulbactam Inj 3 GM in Sodium Chloride 0.9% Inj 100 ML IV.SIG SCH ×2 (01:37→08:20)
[2018-04-27] MEDS: Insulin NovoLOG Aspart Correctional Sugar Inj SQ SCH ×5 (03:59→21:53)
[2018-04-27 06:19] LABS: Baso % (Auto) 0.9 % (0.0-2.0); Eos % (Auto) 1.4 % (0.0-4.0); Hematocrit 31.8 % (39.0-51.0); Hemoglobin 10.2 gm/dL (13.0-17.0); Lymph # (Auto) 0.7 th/mm3 (1.0-4.8); Lymph % (Auto) 22.2 % (9.0-44.0); Mean Corpuscular Hemoglobin 26.8 pg (27.0-34.0); Mean Corpuscular Volume 83.7 fL (80.0-100.0); Mean Platelet Volume 8.8 fL (7.0-11.0); Mono # (Auto) 0.4 th/mm3 (0.0-0.9); Mono % (Auto) 11.9 % (0.0-8.0); Neut # (Auto) 1.9 th/mm3 (1.8-7.7); Neut % (Auto) 63.6 % (16.0-70.0); Platelet Count 32 th/mm3 (150-450); Red Cell Distribution Width 14.8 % (11.6-17.2)
[2018-04-27] MEDS: Gabapentin 300 MG Capsule PO SCH (08:32)
--- NOTE | 2018-04-27 10:20 | P.PNIM ---
Subjective Interval history: f/u; fever/thrombocytopenia in no acute distress. still with on and off fever; T max 100.6. had some sob earlier today. Physical Exam Vital signs: Vital Signs 04/26/18 11:32 04/26/18 12:00 04/26/18 16:00 Temperature 98.3 F 98.6 F Pulse Rate 82 90 78 Respiratory Rate 20 20 Blood Pressure 107/59 L 125/59 L Pulse Oximetry 94 L 98 04/26/18 20:00 04/27/18 00:00 04/27/18 03:52 Temperature 100.6 F H 100.4 F H 98.5 F Pulse Rate 89 85 77 Respiratory Rate 20 20 18 Blood Pressure 148/66 H 134/69 135/78 Pulse Oximetry 97 94 L 96 04/27/18 08:08 Temperature Pulse Rate Respiratory Rate 18 Blood Pressure Pulse Oximetry Intake & Output 04/26/18 04/27/18 04/27/18 18:59 06:59 18:59 Intake Total 413 / 413 2120 / 2120 100 / 100 Balance 413 / 413 212 / 2120 100 / 100 Intake: IV 200 / 200 200 / 200 100 / 100 Unasyn Inj 3 GM In NS Inj 100 200 / 200 200 / 200 100 / 100 ML @ 200 mls/hr IV.SIG Q6H LUCIO Rx#:[id number] Oral 1919 Other 213 / 213 Other: Other Intake Source Saline Solution # Voids 6 - Constitutional no acute distress - Routine Respiratory Exam Present: CTA bilaterally - Routine Cardiovascular Exam Present: RRR - Routine Abdominal Exam Present: soft, distended - Routine Extremities Exam Comments: mild bilateral pedal edema. - Routine Neurological Exam Present: alert, oriented X3 Results - Labs CBC & Chem 7: 04/27/18 05:55 04/26/18 08:40 Laboratory Results - last 24 hr 04/26/18 04/26/18 04/26/18 08:40 08:40 11:55 CBC w Diff WBC RBC Hgb Hct MCV MCH MCHC RDW Plt Count MPV Neut % (Auto) Lymph % (Auto) [place] % (Auto) Eos % (Auto) Baso % (Auto) Neut # (Auto) Lymph # (Auto) [place] # (Auto) Eos # (Auto) Baso # (Auto) WBC Differential . Diff Scan Auto diff confirmed Differential Comment BUN 14 POC Glucose 404 H Urine Color Urine Clarity Urine pH Ur Specific [place] Urine Protein Urine Glucose (UA) Urine Ketones Urine Occult Blood Urine Nitrate Urine Bilirubin Urine Urobilinogen Ur Leukocyte Esterase Urine RBC Urine WBC Urine WBC Clumps Ur Microscopic Review 04/26/18 04/26/18 04/26/18 12:15 17:18 20:35 CBC w Diff WBC RBC Hgb Hct MCV MCH MCHC RDW Plt Count MPV Neut % (Auto) Lymph % (Auto) [place] % (Auto) Eos % (Auto) Baso % (Auto) Neut # (Auto) Lymph # (Auto) [place] # (Auto) Eos # (Auto) Baso # (Auto) WBC Differential Diff Scan Differential Comment BUN POC Glucose 356 H 480 H* Urine Color Yellow Urine Clarity Clear Urine pH 6.0 Ur Specific [place] 1.010 Urine Protein Negative Urine Glucose (UA) 1000 or greater H Urine Ketones Trace H Urine Occult Blood Small H Urine Nitrate Negative Urine Bilirubin Negative Urine Urobilinogen 1.0 Ur Leukocyte Esterase Negative Urine RBC 0-3 Urine WBC 9-20 H Urine WBC Clumps Few H Ur Microscopic Review Microscopic reviewed 04/26/18 04/27/18 04/27/18 22:28 00:52 03:48 CBC w Diff WBC RBC Hgb Hct MCV MCH MCHC RDW Plt Count MPV Neut % (Auto) Lymph % (Auto) [place] % (Auto) Eos % (Auto) Baso % (Auto) Neut # (Auto) Lymph # (Auto) [place] # (Auto) Eos # (Auto) Baso # (Auto) WBC Differential Diff Scan Differential Comment BUN POC Glucose 464 H* 390 H 288 H Urine Color Urine Clarity Urine pH Ur Specific [place] Urine Protein Urine Glucose (UA) Urine Ketones Urine Occult Blood Urine Nitrate Urine Bilirubin Urine Urobilinogen Ur Leukocyte Esterase Urine RBC Urine WBC Urine WBC Clumps Ur Microscopic Review 04/27/18 04/27/18 05:55 07:41 CBC w Diff Slide review pending WBC 3.0 L RBC 3.80 L Hgb 10.2 L Hct 31.8 L MCV 83.7 MCH 26.8 L MCHC 32.0 RDW 14.8 Plt Count 32 L MPV 8.8 Neut % (Auto) 63.6 Lymph % (Auto) 22.2 [place] % (Auto) 11.9 H Eos % (Auto) 1.4 Baso % (Auto) 0.9 Neut # (Auto) 1.9 Lymph # (Auto) 0.7 L [place] # (Auto) 0.4 Eos # (Auto) 0.0 Baso # (Auto) 0.0 WBC Differential . Diff Scan Auto diff confirmed Differential Comment . BUN POC Glucose 281 H Urine Color Urine Clarity Urine pH Ur Specific [place] Urine Protein Urine Glucose (UA) Urine Ketones Urine Occult Blood Urine Nitrate Urine Bilirubin Urine Urobilinogen Ur Leukocyte Esterase Urine RBC Urine WBC Urine WBC Clumps Ur Microscopic Review Microbiology 04/26/18 22:24 Nasal Wash Influenza Types A,B Antigen - Final Negative for FLU A and B antigen Infection due to influenza A or B cannot be ruled out since the antigen present in the sample may be below the detection limit of the test. 04/25/18 18:18 Blood - Peripheral Aerobic Blood Culture - Preliminary No growth in 1 day 04/25/18 18:18 Blood - Peripheral Anaerobic Blood Culture - Preliminary No growth in 1 day 04/25/18 15:10 Blood - Peripheral Aerobic Blood Culture - Preliminary No growth in 1 day 04/25/18 15:10 Blood - Peripheral Anaerobic Blood Culture - Preliminary No growth in 1 day Assessment and Plan - Plan A/P - fever- possible UTI will continue with IV antibiotic- UC with strep- blood cultures from 04/25 negative- CXR with no infiltrate. recent abdominal CT with no acute intraabdominal abnormality. started on Unasyn- flu test pending- ID following. -thrombocytopenia due to Cirrhosis- no active bleed- continue to monitor closely- Hematology consult appreciated. -diabetes mellitus- continue with accu-check with SSI- A1c pending. -Cirrhosis- will check abdominal US and consult GI in light of worsening abdominal distention and recurrent fever. -sob/ elevated d-dimer- will check CTA chest -hypertension; hold lisinopril and continue to monitor the BP -acute kidney injury; improved- stop IV fluid. -mild hypokalemia; replaced. -DVT prophylaxis with SCD's- no chemical prophylaxis due to liver disease/ thrombocytopenia. Discharge Planning: still with on and off fever- not ready for discharge yet.
--- NOTE | 2018-04-27 10:29 | P.PNID ---
Subjective Remarks: Still with low grade fever More shortness of breath Abdominal discomfort and more distension Antibiotics: Unasyn Lines: Peripheral IV line Past Medical History: Cirrhosis Thrombocytopenia Allergies/Adverse Reactions: Allergies No Known Allergies Allergy (Verified 04/24/18 17:51) Objective Vital Signs 04/26/18 11:32 04/26/18 12:00 04/26/18 16:00 Temperature 98.3 F 98.6 F Pulse Rate 82 90 78 Respiratory Rate 20 20 Blood Pressure 107/59 L 125/59 L Pulse Oximetry 94 L 98 04/26/18 20:00 04/27/18 00:00 04/27/18 03:52 Temperature 100.6 F H 100.4 F H 98.5 F Pulse Rate 89 85 77 Respiratory Rate 20 20 18 Blood Pressure 148/66 H 134/69 135/78 Pulse Oximetry 97 94 L 96 04/27/18 08:08 Temperature Pulse Rate Respiratory Rate 18 Blood Pressure Pulse Oximetry Intake & Output 04/26/18 04/27/18 04/27/18 18:59 06:59 18:59 Intake Total 413 / 413 2120 / 2120 100 / 100 Balance 413 / 413 2120 / 2120 100 / 100 Intake: IV 200 / 200 200 / 200 100 / 100 Unasyn Inj 3 GM In NS Inj 100 200 / 200 200 / 200 100 / 100 ML @ 200 mls/hr IV.SIG Q6H LUCIO Rx#:[id number] Oral 1919 Other / 213 Other: Other Intake Source Saline Solution # Voids 6 04/26/18 22:24 Nasal Wash Influenza Types A,B Antigen - Final Negative for FLU A and B antigen Infection due to influenza A or B cannot be ruled out since the antigen present in the sample may be below the detection limit of the test. 04/25/18 18:18 Blood - Peripheral Aerobic Blood Culture - Preliminary No growth in 1 day 04/25/18 18:18 Blood - Peripheral Anaerobic Blood Culture - Preliminary No growth in 1 day 04/25/18 15:10 Blood - Peripheral Aerobic Blood Culture - Preliminary No growth in 1 day 04/25/18 15:10 Blood - Peripheral Anaerobic Blood Culture - Preliminary No growth in 1 day Lab - Hematology Results 04/26/18 04/27/18 08:40 05:55 CBC w Diff Slide review pending Slide review pending WBC 3.9 L 3.0 L RBC 4.05 L 3.80 L Hgb 11.0 L 10.2 L Hct 34.0 L 31.8 L MCV 84.0 83.7 MCH 27.0 26.8 L MCHC 32.2 32.0 RDW 14.7 14.8 Plt Count 30 L D 32 L MPV 9.1 8.8 Neut % (Auto) 74.2 H 63.6 Lymph % (Auto) 13.1 22.2 [place] % (Auto) 10.4 H 11.9 H Eos % (Auto) 1.5 1.4 Baso % (Auto) 0.8 0.9 Neut # (Auto) 2.9 1.9 Lymph # (Auto) 0.5 L 0.7 L Frederick # (Auto) 0.4 0.4 Eos # (Auto) 0.1 0.0 Baso # (Auto) 0.0 0.0 WBC Differential . . Diff Scan Auto diff confirmed Auto diff confirmed Differential Comment . . Lab - Chemistry Results 04/25/18 04/25/18 04/25/18 07:00 07:00 12:55 Sodium Potassium Chloride Carbon Dioxide Anion Gap BUN Creatinine Estimated GFR POC Glucose 280 H Random Glucose Hemoglobin A1c 9.7 H Lactic Acid Calcium Total Bilirubin Direct Bilirubin Indirect Bilirubin AST ALT Alkaline Phosphatase Total Protein Albumin Triglycerides 135 Cholesterol 90 L LDL Cholesterol, Calc 44 HDL Cholesterol 19.4 L Cholesterol/HDL Ratio 4.63 04/25/18 04/25/18 04/25/18 13:33 17:07 19:50 Sodium Potassium Chloride Carbon Dioxide Anion Gap BUN Creatinine Estimated GFR POC Glucose 260 H Random Glucose Hemoglobin A1c Lactic Acid 1.4 Calcium Total Bilirubin 1.0 Direct Bilirubin 0.5 H Indirect Bilirubin 0.5 AST 13 L ALT 27 Alkaline Phosphatase 70 Total Protein 7.1 D Albumin 2.3 L Triglycerides Cholesterol LDL Cholesterol, Calc HDL Cholesterol Cholesterol/HDL Ratio 04/25/18 04/26/18 04/26/18 23:07 03:23 07:38 Sodium Potassium Chloride Carbon Dioxide Anion Gap BUN Creatinine Estimated GFR POC Glucose 286 H 254 H 241 H Random Glucose Hemoglobin A1c Lactic Acid Calcium Total Bilirubin Direct Bilirubin Indirect Bilirubin AST ALT Alkaline Phosphatase Total Protein Albumin Triglycerides Cholesterol LDL Cholesterol, Calc HDL Cholesterol Cholesterol/HDL Ratio 04/26/18 04/26/18 04/26/18 08:40 11:55 17:18 Sodium 134 L Potassium 3.3 L Chloride 99 Carbon Dioxide 26.2 Anion Gap 9 BUN 14 Creatinine 1.00 Estimated GFR 78 L POC Glucose 404 H 356 H Random Glucose 283 H Hemoglobin A1c Lactic Acid Calcium 7.6 L Total Bilirubin Direct Bilirubin Indirect Bilirubin AST ALT Alkaline Phosphatase Total Protein Albumin Triglycerides Cholesterol LDL Cholesterol, Calc HDL Cholesterol Cholesterol/HDL Ratio 04/26/18 04/26/18 04/27/18 20:35 22:28 00:52 Sodium Potassium Chloride Carbon Dioxide Anion Gap BUN Creatinine Estimated GFR POC Glucose 480 H* 464 H* 390 H Random Glucose Hemoglobin A1c Lactic Acid Calcium Total Bilirubin Direct Bilirubin Indirect Bilirubin AST ALT Alkaline Phosphatase Total Protein Albumin Triglycerides Cholesterol LDL Cholesterol, Calc HDL Cholesterol Cholesterol/HDL Ratio 04/27/18 04/27/18 03:48 07:41 Sodium Potassium Chloride Carbon Dioxide Anion Gap BUN Creatinine Estimated GFR POC Glucose 288 H 281 H Random Glucose Hemoglobin A1c Lactic Acid Calcium Total Bilirubin Direct Bilirubin Indirect Bilirubin AST ALT Alkaline Phosphatase Total Protein Albumin Triglycerides Cholesterol LDL Cholesterol, Calc HDL Cholesterol Cholesterol/HDL Ratio Imaging: ITS Impressions Chest X-Ray 04/25/18 00:00 CONCLUSION: Mild congestive failure. No alveolar consolidation to suggest an inflammatory process. Physical Exam: Alert, Oriented x 3 Obese No thrush Chest : BSB decreased Heart S1 S2 normal Abd: Ascites- more distended Bowel sounds heard Assessment and Plan (1) Fever Status: Acute Code(s): R50.9 - Fever, unspecified (2) UTI (urinary tract infection) Status: Acute Code(s): N39.0 - Urinary tract infection, site not specified (3) Diabetes Status: Acute Code(s): E11.9 - Type 2 diabetes mellitus without complications (4) Liver cirrhosis Status: Acute Code(s): K74.60 - Unspecified cirrhosis of liver - Plan 1. Follow Blood cultures- so far negative 2. Follow Urine culture- grew Strep 3. Influenza test- negative 4. Stop Unasyn as worsening thrombocytopenia 5. Agree with CT Chest 6. Check US abdomen- amount of ascites ? 7. Start Cefepime 1 g q8hrs
[2018-04-27 10:42] LABS: Folate 8.5 ng/mL (3.1-17.5)
--- NOTE | 2018-04-27 11:19 | US ---
EXAM DATE: 04/27/2018 12:00 AM EDT AGE/SEX: 53 years / Male INDICATIONS: Evaluate for ascites. CLINICAL DATA: This is the patient's subsequent encounter. Patient reports that signs and symptoms h ave been present for 1 day and indicates a pain score of 3/10. MEDICAL/SURGICAL HISTORY: . Thrombocytopenia. HTN. Liver cirrhosis. Neuropathy. Spleen dise ase. Patella-femoral syndrome. None. COMPARISON: [facility], CT ABDOMEN & PELVIS W CONTRAST, 04/24/2018. . FINDINGS: Limited 4 quadrant sonography was performed to evaluate for ascites. Visceral evaluation was not perf ormed at this time. No ascites. CONCLUSION: 1. No ascites. Electronically signed by: Agustin Mccall MD 04/27/2018 11:17 AM EDT
[2018-04-27] MEDS: Morphine Inj 4 MG/ML Vial IV.PUSH PRN ×2 (11:22→19:57)
--- NOTE | 2018-04-27 14:49 | CT ---
EXAM DATE: 04/27/2018 1:22 PM EDT AGE/SEX: 53 years / Male INDICATIONS: Chest pain and short of breath. CLINICAL DATA: This is the patient's initial encounter. Patient reports that signs and symptoms have been present for 2 weeks and indicates a pain score of 7/10. MEDICAL/SURGICAL HISTORY: Diabetes. Cirrhosis. Hypertension. None. RADIATION DOSE: 21.68 CTDI (mGy) ; Patient body habitus COMPARISON: [facility], CHEST 1V SINGLE AP, 04/25/2018. [facility], CT ABDOMEN & PELVIS W CONTRAST, 04/24/20 18. . TECHNIQUE: Volumetric scanning was performed using a multi-row detector CT scanner during bolus infu kobe of 85 ml Omnipaque 350 (iohexol) nonionic water-soluble contrast as a single exam dose. The liz a was post processed with a variety of visualization algorithms including full volume maximum intensi ty projection and sliding thin slab reformation. Using automated exposure control and adjustment of the mA and/or kV according to patient size, radiation dose was kept as low as reasonably achievable t o obtain optimal diagnostic quality images. DICOM format image data is available electronically for review and comparison. FINDINGS: Splenomegaly is noted up to at least 19 cm in AP dimension. There is no adenopathy. Trace pericardial fluid. Liver is cirrhotic in appearance with a small amount of ascites in the upper abdomen. There a re varices in the periesophageal region. There are atelectatic changes seen in the left lower lobe an d right lower lobe. There is no evidence for pulmonary embolism. Osseous structures are intact. CONCLUSION: 1. Cirrhosis and portal hypertension with splenomegaly and ascites. 2. No evidence for pulmonary embolism. 3. Bilateral subsegmental atelectatic changes are appreciated. Electronically signed by: David Burton MD 04/27/2018 2:48 PM EDT
--- NOTE | 2018-04-27 18:44 | P.CONGI ---
History of Present Illness Consult reason: Cirrhosis associated with fever Chief complaint: NSTEMI, Pancytopenia, Pylonephritis, Hyperglycemia History of Present Illness: Patient is a 53-year-old male who was admitted to the hospital with history of intermittent fevers for the last 1 week. Fever was initially mild to moderate and since admission he has had high-grade fever associated with chills and Reiger's. He denies any history of jaundice ascites edema hematemesis melena hematochezia. He denies heartburn dysphagia nausea vomiting constipation diarrhea anorexia or weight loss. He was diagnosed to have cirrhosis 2 years ago. Likely related to fatty liver and MATIAS Review of Systems Constitutional: Reports fever(s), Reports night sweats PMFSH - History History Provided By: Patient - Medical History Medical History: Medical History (Last Updated 04/25/18 @ 17:17 by Shon Hernandez MD) Liver cirrhosis (Acute) Diabetes HBP (high blood pressure) Neuropathy Patella-femoral syndrome Platelet disorder Spleen disease - Surgical History Surgical History: Surgical History (Last Reviewed 04/24/18 @ 17:53 by Airam Clarke RN) No history of previous surgery - Family History Family History: Family History (Last Updated 04/25/18 @ 08:26 by Rigo Torres MD) Other No pertinent family history - Tobacco History Second Hand Smoke Exposure: No Smoking Status: Never smoker - Alcohol History How Often Do You Have a Drink Containing Alcohol: Monthly or less - Substance Use History Substance History: No History of Abuse Medications and Allergies Active Medications: Active Medications Acetaminophen (Tylenol) 500 mg PO Q4H PRN PRN Reason: HEADACHE Last Admin: 04/27/18 07:38 Dose: 500 mg Hydrocodone Bitart/Acetaminophen ([place] 7.5/325) 1 tab PO Q4H PRN PRN Reason: PAIN SCALE 1 TO 5 Last Admin: 04/27/18 04:03 Dose: 1 tab Dextrose (D50w Vial) 50 ml IV.PUSH UNSCH PRN PRN Reason: PER HYPOGLYCEMIA PROTOCOL Gabapentin (Neurontin) 300 mg PO DAILY [facility] Last Admin: 04/27/18 08:32 Dose: 300 mg Glucagon (Glucagon Inj) 1 mg OTHER PRN PRN PRN Reason: for Hypoglycemia Protocol Sodium Chloride (Ns Inj) 1,000 mls @ 100 mls/hr IV.CONT .Q10H LUCIO Last Infusion: 04/25/18 19:08 Dose: Infused Cefepime HCl 1,000 mg/ Sodium (Chloride) 100 mls @ 200 mls/hr IV.SIG Q8H [facility] Last Infusion: 04/27/18 11:54 Dose: Infused Insulin Aspart (Novolog Insulin Correctional Sugar Inj) 0 unit SQ ACHS AND 3AM LUCIO; Protocol Last Admin: 04/27/18 16:45 Dose: 9 unit Insulin Detemir (Levemir Inj) 10 unit SQ HS [facility] Last Admin: 04/26/18 20:49 Dose: 10 unit Morphine Sulfate (Morphine Inj) 2 mg IV.PUSH Q4H PRN PRN Reason: PAIN SCALE 6 TO 10 Last Admin: 04/27/18 11:22 Dose: 2 mg Nitroglycerin (Nitrostat Sl) 0.4 mg SL Q5M PRN PRN Reason: ANGINA Quetiapine Fumarate (Seroquel) 200 mg PO DAILY [facility] Last Admin: 04/27/18 08:32 Dose: 200 mg Sodium Chloride (Ns Flush) 2 ml IV.FLUSH BID [facility] Last Admin: 04/27/18 08:33 Dose: 2 ml Sodium Chloride (Ns Flush) 2 ml IV.FLUSH PRN PRN PRN Reason: FLUSH AFTER USING IV ACCESS Last Admin: 04/27/18 11:24 Dose: 2 ml Allergies Allergy/AdvReac Type Severity Reaction Status Date / Time No Known Allergies Allergy Verified 04/24/18 17:51 Home Medications Medication Instructions Recorded Confirmed Type gabapentin 300 mg PO DAILY 04/23/18 04/24/18 History lisinopril-hydrochlorothiazide 1 tab PO DAILY 04/23/18 04/24/18 History metformin 1,000 mg PO BID 04/23/18 04/24/18 History quetiapine [Seroquel] 200 mg PO DAILY 04/23/18 04/24/18 History Exam Vital signs: Vital Signs 04/26/18 20:00 04/27/18 00:00 04/27/18 03:52 Temperature 100.6 F H 100.4 F H 98.5 F Pulse Rate 89 85 77 Respiratory Rate 20 20 18 Blood Pressure 148/66 H 134/69 135/78 Pulse Oximetry 97 94 L 96 04/27/18 08:00 04/27/18 08:08 04/27/18 11:24 Temperature 97.6 F Pulse Rate 76 Respiratory Rate 18 18 18 Blood Pressure 144/79 H Pulse Oximetry 97 04/27/18 12:00 04/27/18 16:00 Temperature 97.0 F L 97.0 F L Pulse Rate 90 86 Respiratory Rate 18 18 Blood Pressure 149/79 H 120/65 Pulse Oximetry 97 95 Intake & Output 04/26/18 04/27/18 04/27/18 18:59 06:59 18:59 Intake Total 413 / 413 2120 / 2120 1160 / 1160 Balance 413 / 413 2120 / 2120 1160 / 1160 Intake: IV 200 / 200 200 / 200 200 / 200 Unasyn Inj 3 GM In NS Inj 100 200 / 200 200 / 200 100 / 100 ML @ 200 mls/hr IV.SIG Q6H LUCIO Rx#:[id number] Maxipime Inj 1,000 MG In NS Inj 100 / 100 100 ML @ 200 mls/hr IV.SIG Q8H LUCIO Rx#:[id number] Oral 1920 / 1920 960 / 960 Other 213 / 213 Other: Other Intake Source Saline Solution # Voids 6 6 Date of Last Bowel Movement 04/26/18 # Bowel Movements 0 - Routine Abdominal Exam Present: soft, tenderness, guarding, organomegaly Comments: Tenderness in the right upper quadrant with mild guarding. No rigidity. Liver and spleen palpable. No appreciable ascites. bowel sounds normal Results - Labs CBC & Chem 7: 04/27/18 05:55 04/26/18 08:40 Labs: Laboratory Results - last 24 hr 04/26/18 04/26/18 04/26/18 08:40 20:35 22:28 CBC w Diff WBC RBC Hgb Hct MCV MCH MCHC RDW Plt Count MPV Neut % (Auto) Lymph % (Auto) Howard % (Auto) Eos % (Auto) Baso % (Auto) Neut # (Auto) Lymph # (Auto) Howard # (Auto) Eos # (Auto) Baso # (Auto) WBC Differential Diff Scan Differential Comment POC Glucose 480 H* 464 H* Vitamin B12 342 Folate 8.5 04/27/18 04/27/18 04/27/18 00:52 03:48 05:55 CBC w Diff Slide review pending WBC 3.0 L RBC 3.80 L Hgb 10.2 L Hct 31.8 L MCV 83.7 MCH 26.8 L MCHC 32.0 RDW 14.8 Plt Count 32 L MPV 8.8 Neut % (Auto) 63.6 Lymph % (Auto) 22.2 Howard % (Auto) 11.9 H Eos % (Auto) 1.4 Baso % (Auto) 0.9 Neut # (Auto) 1.9 Lymph # (Auto) 0.7 L Howard # (Auto) 0.4 Eos # (Auto) 0.0 Baso # (Auto) 0.0 WBC Differential . Diff Scan Auto diff confirmed Differential Comment . POC Glucose 390 H 288 H Vitamin B12 Folate 04/27/18 04/27/18 04/27/18 07:41 11:30 16:33 CBC w Diff WBC RBC Hgb Hct MCV MCH MCHC RDW Plt Count MPV Neut % (Auto) Lymph % (Auto) Howard % (Auto) Eos % (Auto) Baso % (Auto) Neut # (Auto) Lymph # (Auto) Howard # (Auto) Eos # (Auto) Baso # (Auto) WBC Differential Diff Scan Differential Comment POC Glucose 281 H 372 H 431 H Vitamin B12 Folate - Imaging Impressions Abdomen Ultrasound 04/27/18 00:00 CONCLUSION: 1. No ascites. Chest CTA 04/27/18 00:00 CONCLUSION: 1. Cirrhosis and portal hypertension with splenomegaly and ascites. 2. No evidence for pulmonary embolism. 3. Bilateral subsegmental atelectatic changes are appreciated. Assessment and Plan (1) SBP (spontaneous bacterial peritonitis) Status: Acute Code(s): K65.2 - Spontaneous bacterial peritonitis (2) Pancytopenia Status: Acute Code(s): D61.818 - Other pancytopenia (3) Fever Status: Acute Code(s): R50.9 - Fever, unspecified (4) Liver cirrhosis Status: Acute Code(s): K74.60 - Unspecified cirrhosis of liver - Plan 1. History of cirrhosis likely related to fatty liver and Matias. 2. Ascites seen on CT scan likely source of SBP 3. 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 4. Remote possibility of underlying fungal, mycobacterial infection and hematological malignancy 5. Recommend switching antibiotics to cefotaxime to treat suspected SBP 6. AFP, bone marrow biopsy ,echo/heart to further workup source of fever 7. EGD and colonoscopy can be done electively
[2018-04-27] MEDS: Insulin Detemir Inj 1,000 UNIT/10 ML Vial SQ SCH (21:53)
[2018-04-28] MEDS: Morphine Inj 4 MG/ML Vial IV.PUSH PRN ×5 (00:09→23:24)
[2018-04-28] MEDS: Insulin NovoLOG Aspart Correctional Sugar Inj SQ SCH ×5 (03:12→23:41)
[2018-04-28 07:52] LABS: Baso % (Auto) 0.2 % (0.0-2.0); Eos # (Auto) 0.1 th/mm3 (0.0-0.4); Hematocrit 31.2 % (39.0-51.0); Hemoglobin 10.7 gm/dL (13.0-17.0); Lymph # (Auto) 0.8 th/mm3 (1.0-4.8); Lymph % (Auto) 23.1 % (9.0-44.0); Mean Corpuscular HGB Conc 34.3 % (32.0-36.0); Mean Corpuscular Hemoglobin 28.1 pg (27.0-34.0); Mean Platelet Volume 9.1 fL (7.0-11.0); Mono # (Auto) 0.4 th/mm3 (0.0-0.9); Mono % (Auto) 10.7 % (0.0-8.0); Platelet Count 41 th/mm3 (150-450); Red Blood Count 3.81 mil/mm3 (4.50-5.90); Red Cell Distribution Width 15.2 % (11.6-17.2); White Blood Count 3.3 th/mm3 (4.0-11.0)
[2018-04-28 08:00] LABS: Potassium 3.6 meq/L (3.5-5.1)
[2018-04-28] MEDS: Gabapentin 300 MG Capsule PO SCH (08:00)
[2018-04-28 08:03] LABS: Calcium 7.6 mg/dL (8.5-10.1)
[2018-04-28 08:04] LABS: Carbon Dioxide 31.7 meq/L (21.0-32.0)
--- NOTE | 2018-04-28 09:00 | P.PNIM ---
Subjective Interval history: f/u; fever/ thrombocytopenia in no acute distress. remains afebrile this morning. pain is controlled. no new complaints. Physical Exam Vital signs: Vital Signs 04/27/18 11:24 04/27/18 12:00 04/27/18 16:00 Temperature 97.0 F L 97.0 F L Pulse Rate 90 86 Respiratory Rate 18 18 18 Blood Pressure 149/79 H 120/65 Pulse Oximetry 97 95 04/27/18 20:00 04/28/18 00:00 04/28/18 00:25 Temperature 98.1 F 99.4 F Pulse Rate 79 82 79 Respiratory Rate 20 20 Blood Pressure 149/70 H 129/61 Pulse Oximetry 97 97 04/28/18 00:27 04/28/18 03:36 04/28/18 04:00 Temperature 98.2 F Pulse Rate 72 Respiratory Rate 20 20 20 Blood Pressure 118/57 L Pulse Oximetry 98 04/28/18 04:25 04/28/18 05:13 Temperature Pulse Rate 72 Respiratory Rate 18 Blood Pressure Pulse Oximetry Intake & Output 04/27/18 04/28/18 04/28/18 18:59 06:59 18:59 Intake Total 1160 / 1160 260 / 260 Balance 1160 / 1160 260 / 260 Weight 148.3 kg Intake: IV 200 / 200 200 / 200 Unasyn Inj 3 GM In NS Inj 100 100 / 100 ML @ 200 mls/hr IV.SIG Q6H LUCIO Rx#:[id number] Maxipime Inj 1,000 MG In NS Inj 100 / 100 200 / 200 100 ML @ 200 mls/hr IV.SIG Q8H LUCIO Rx#:[id number] Oral 960 / 960 60 / 60 Other: # Voids 6 3 Date of Last Bowel Movement 04/26/18 04/26/18 # Bowel Movements 0 - Constitutional no acute distress - Routine Respiratory Exam Present: CTA bilaterally - Routine Cardiovascular Exam Present: RRR - Routine Abdominal Exam Present: soft, distended - Routine Extremities Exam Comments: no pedal edema. - Routine Neurological Exam Present: alert, oriented X3 Results - Labs CBC & Chem 7: 04/28/18 07:20 04/28/18 07:20 Laboratory Results - last 24 hr 04/26/18 04/27/18 04/27/18 08:40 11:30 16:33 CBC w Diff WBC RBC Hgb Hct MCV MCH MCHC RDW Plt Count MPV Neut % (Auto) Lymph % (Auto) [place] % (Auto) Eos % (Auto) Baso % (Auto) Neut # (Auto) Lymph # (Auto) [place] # (Auto) Eos # (Auto) Baso # (Auto) Differential Comment Sodium Potassium Chloride Carbon Dioxide Anion Gap BUN Creatinine Estimated GFR POC Glucose 372 H 431 H Random Glucose Calcium Vitamin B12 342 Folate 8.5 04/27/18 04/28/18 04/28/18 20:09 03:04 07:20 CBC w Diff Slide review pending WBC 3.3 L RBC 3.81 L Hgb 10.7 L Hct 31.2 L MCV 82.0 MCH 28.1 MCHC 34.3 RDW 15.2 Plt Count 41 L MPV 9.1 Neut % (Auto) 64.0 Lymph % (Auto) 23.1 [place] % (Auto) 10.7 H Eos % (Auto) 2.0 Baso % (Auto) 0.2 Neut # (Auto) 2.0 Lymph # (Auto) 0.8 L [place] # (Auto) 0.4 Eos # (Auto) 0.1 Baso # (Auto) 0.0 Differential Comment . Sodium Potassium Chloride Carbon Dioxide Anion Gap BUN Creatinine Estimated GFR POC Glucose 358 H 327 H Random Glucose Calcium Vitamin B12 Folate 04/28/18 04/28/18 07:20 07:36 CBC w Diff WBC RBC Hgb Hct MCV MCH MCHC RDW Plt Count MPV Neut % (Auto) Lymph % (Auto) [place] % (Auto) Eos % (Auto) Baso % (Auto) Neut # (Auto) Lymph # (Auto) [place] # (Auto) Eos # (Auto) Baso # (Auto) Differential Comment Sodium 138 Potassium 3.6 Chloride 101 Carbon Dioxide 31.7 Anion Gap 5 BUN 9 Creatinine 0.95 Estimated GFR 83 L POC Glucose 231 H Random Glucose 218 H Calcium 7.6 L Vitamin B12 Folate Microbiology 04/25/18 18:18 Blood - Peripheral Aerobic Blood Culture - Preliminary No growth in 2 days 04/25/18 18:18 Blood - Peripheral Anaerobic Blood Culture - Preliminary No growth in 2 days 04/25/18 15:10 Blood - Peripheral Aerobic Blood Culture - Preliminary No growth in 2 days 04/25/18 15:10 Blood - Peripheral Anaerobic Blood Culture - Preliminary No growth in 2 days - Imaging Impressions Abdomen Ultrasound 04/27/18 00:00 CONCLUSION: 1. No ascites. Chest CTA 04/27/18 00:00 CONCLUSION: 1. Cirrhosis and portal hypertension with splenomegaly and ascites. 2. No evidence for pulmonary embolism. 3. Bilateral subsegmental atelectatic changes are appreciated. Assessment and Plan - Plan A/P - fever- possible UTI will continue with IV antibiotic- UC with strep- blood cultures from 04/25 negative- CXR with no infiltrate. recent abdominal CT with no acute intraabdominal abnormality. chest CTA with bilateral atelectasis and no PE on IV Rocephin- flu test negative- ID following. -thrombocytopenia- improving. due to Cirrhosis- no active bleed- continue to monitor closely- Hematology consult appreciated. -diabetes mellitus- continue with accu-check with SSI- A1c pending. -Cirrhosis- likely due to fatty liver and ZULETA- abdominal US with no ascites- continue IV antibiotic- HIDA today- GI following. -hypertension; hold lisinopril and continue to monitor the BP -acute kidney injury; improved- stopped IV fluid. -mild hypokalemia; replaced. -DVT prophylaxis with SCD's- no chemical prophylaxis due to liver disease/ thrombocytopenia. Discharge Planning: when w/u completed and cleared by consultants.
[2018-04-28 09:31] LABS: Platelet Morphology Normal (Normal)
[2018-04-28] MEDS ORDERED: Sincalide Inj 5 MCG Vial IV.PUSH ONE (12:41)
--- NOTE | 2018-04-28 13:19 | P.PNID ---
Subjective Remarks: NO FEVER OR CHILLS NO NVD Antibiotics: cefepime Lines: Peripheral IV line Past Medical History: Cirrhosis Thrombocytopenia Allergies/Adverse Reactions: Allergies No Known Allergies Allergy (Verified 04/24/18 17:51) Objective Vital Signs 04/27/18 16:00 04/27/18 20:00 04/28/18 00:00 Temperature 97.0 F L 98.1 F 99.4 F Pulse Rate 86 79 82 Respiratory Rate 18 20 20 Blood Pressure 120/65 149/70 H 129/61 Pulse Oximetry 95 97 97 04/28/18 00:25 04/28/18 00:27 04/28/18 03:36 Temperature Pulse Rate 79 Respiratory Rate 20 20 Blood Pressure Pulse Oximetry 04/28/18 04:00 04/28/18 04:25 04/28/18 05:13 Temperature 98.2 F Pulse Rate 72 72 Respiratory Rate 20 18 Blood Pressure 118/57 L Pulse Oximetry 98 04/28/18 08:00 Temperature 97.8 F Pulse Rate 68 Respiratory Rate 20 Blood Pressure 120/59 L Pulse Oximetry 97 Intake & Output 04/27/18 04/28/18 04/28/18 18:59 06:59 18:59 Intake Total 1160 / 1160 260 / 260 Balance 1160 / 1160 260 / 260 Weight 148.3 kg Intake: IV 200 / 200 200 / 200 Unasyn Inj 3 GM In NS Inj 100 100 / 100 ML @ 200 mls/hr IV.SIG Q6H [facility] Rx#:[id number] Maxipime Inj 1,000 MG In NS Inj 100 / 100 200 / 200 100 ML @ 200 mls/hr IV.SIG Q8H [facility] Rx#:[id number] Oral 960 / 960 60 / 60 Other: # Voids 6 3 Date of Last Bowel Movement 04/26/18 04/26/18 # Bowel Movements 0 04/25/18 18:18 Blood - Peripheral Aerobic Blood Culture - Preliminary No growth in 3 days 04/25/18 18:18 Blood - Peripheral Anaerobic Blood Culture - Preliminary No growth in 3 days 04/25/18 15:10 Blood - Peripheral Aerobic Blood Culture - Preliminary No growth in 3 days 04/25/18 15:10 Blood - Peripheral Anaerobic Blood Culture - Preliminary No growth in 3 days 04/26/18 22:24 Nasal Wash Influenza Types A,B Antigen - Final Negative for FLU A and B antigen Infection due to influenza A or B cannot be ruled out since the antigen present in the sample may be below the detection limit of the test. Lab - Hematology Results 04/27/18 04/28/18 05:55 07:20 CBC w Diff Slide review pending Slide review pending WBC 3.0 L 3.3 L RBC 3.80 L 3.81 L Hgb 10.2 L 10.7 L Hct 31.8 L 31.2 L MCV 83.7 82.0 MCH 26.8 L 28.1 MCHC 32.0 34.3 RDW 14.8 15.2 Plt Count 32 L 41 L MPV 8.8 9.1 Neut % (Auto) 63.6 64.0 Lymph % (Auto) 22.2 23.1 [place] % (Auto) 11.9 H 10.7 H Eos % (Auto) 1.4 2.0 Baso % (Auto) 0.9 0.2 Neut # (Auto) 1.9 2.0 Lymph # (Auto) 0.7 L 0.8 L [place] # (Auto) 0.4 0.4 Eos # (Auto) 0.0 0.1 Baso # (Auto) 0.0 0.0 WBC Differential . . Diff Scan Auto diff confirmed Auto diff confirmed Differential Comment . . Platelet Estimate Low L Platelet Morphology Normal Lab - Chemistry Results 04/26/18 04/26/18 04/26/18 08:40 17:18 20:35 Sodium Potassium Chloride Carbon Dioxide Anion Gap BUN Creatinine Estimated GFR POC Glucose 356 H 480 H* Random Glucose Calcium Tumor Marker AFP Vitamin B12 342 Folate 8.5 04/26/18 04/27/18 04/27/18 22:28 00:52 03:48 Sodium Potassium Chloride Carbon Dioxide Anion Gap BUN Creatinine Estimated GFR POC Glucose 464 H* 390 H 288 H Random Glucose Calcium Tumor Marker AFP Vitamin B12 Folate 04/27/18 04/27/18 04/27/18 07:41 11:30 16:33 Sodium Potassium Chloride Carbon Dioxide Anion Gap BUN Creatinine Estimated GFR POC Glucose 281 H 372 H 431 H Random Glucose Calcium Tumor Marker AFP Vitamin B12 Folate 04/27/18 04/28/18 04/28/18 20:09 03:04 07:20 Sodium 138 Potassium 3.6 Chloride 101 Carbon Dioxide 31.7 Anion Gap 5 BUN 9 Creatinine 0.95 Estimated GFR 83 L POC Glucose 358 H 327 H Random Glucose 218 H Calcium 7.6 L Tumor Marker AFP Vitamin B12 Folate 04/28/18 04/28/18 04/28/18 07:20 07:36 11:28 Sodium Potassium Chloride Carbon Dioxide Anion Gap BUN Creatinine Estimated GFR POC Glucose 231 H 198 H Random Glucose Calcium Tumor Marker AFP 1.7 Vitamin B12 Folate Imaging: ITS Impressions Chest X-Ray 04/25/18 00:00 CONCLUSION: Mild congestive failure. No alveolar consolidation to suggest an inflammatory process. Abdomen Ultrasound 04/27/18 00:00 CONCLUSION: 1. No ascites. Chest CTA 04/27/18 00:00 CONCLUSION: 1. Cirrhosis and portal hypertension with splenomegaly and ascites. 2. No evidence for pulmonary embolism. 3. Bilateral subsegmental atelectatic changes are appreciated. Physical Exam: Alert, Oriented x 3 No thrush Chest : BSB decreased Heart S1 S2 normal Abd: Ascites- more distended Bowel sounds heard Assessment and Plan - Plan 1. Follow Blood cultures- so far negative 2. Follow Urine culture- grew Strep repeat is negative 3. Influenza test- negative 4. Monitor clinically 5. CT Chest- atlectasis 6. US abdomen- No ascites 7. Continue rocephin 1 g q24hrs
--- NOTE | 2018-04-28 13:29 | NM ---
EXAM DATE: 04/28/2018 11:29 AM EDT AGE/SEX: 53 years / Male INDICATIONS: Right upper quadrant pain with nausea and vomiting. CLINICAL DATA: This is the patient's initial encounter. Patient reports that signs and symptoms have been present for 1 day and indicates a pain score of 8/10. MEDICAL/SURGICAL HISTORY: Diabetes mellitus type II. Hypertension. Cirrhosis. Spleen disease . None. COMPARISON: . DOSE: 4.1 mCi Tc-99m mebrofenin i.v. Medication: 2.5 mcg Cholecystokinin IV No symptomatic response Cholecystokinin was administered by slow infusion over 8 minutes beginning at 60 minutes. TECHNIQUE: Following the intravenous administration of radiotracer, dynamic sequential images were pe rformed with continuous acquisition. Time-activity curves were generated. FINDINGS: Hepatic Kinetics: There is prompt uptake of radiotracer in the liver. No focal defects are seen. Ther e is normal rate of washout from the hepatic parenchyma. Biliary Clearance: Activity is first seen in the extrahepatic biliary system at 15 minutes. There is normal excretion into the small bowel. Gallbladder: Activity is first seen in the gallbladder at 20 minutes. Post-CCK: After CCK administration, there is emptying of the gallbladder with a 25% ejection fraction . Common bile duct kinetics are normal and there is no evidence of biliary obstruction. No symptomat ic response after cholecystokinin infusion. Biliary-Enteric Reflux: None observed. CONCLUSION: 1. No cystic duct or distal common bile duct obstruction. 2. Decreased ejection fraction after CCK administration suggesting possible chronic cholecystitis. C linical correlation is recommended. Electronically signed by: Adonis Sinha MD 04/28/2018 1:28 PM EDT
--- NOTE | 2018-04-28 15:30 | ECHRPT ---
Indication: Acute and subacute endocarditis, unspecified CONCLUSIONS The left ventricular systolic function is normal with an estimated ejection fraction in the range o f 50-55%. No regional wall motion abnormalities. Normal left ventricular size and wall thickness. Mild mitral valve regurgitation. Mild tricuspid valve regurgitation The estimated pulmonary arterial pressure is 50.4 mmHg. No evidence vegetations seen on today's study. No prior echo for comparision. BP: / HR: Rhythm: Sinus MEASUREMENTS (Male / Female) Normal Values Technical Quality:Fair 2D ECHO LV Diastolic Diameter PLAX 5.5 cm 4.2 - 5.9 / 3.9 - 5.3 cm LV Systolic Diameter PLAX 4.3 cm IVS Diastolic Thickness 1.1 cm 0.6 - 1.0 / 0.6 - 0.9 cm LVPW Diastolic Thickness 1.1 cm 0.6 - 1.0 / 0.6 - 0.9 cm LV Relative Wall Thickness 0.4 LVOT Diameter 1.8 cm M-MODE Aortic Root Diameter MM 3.3 cm LA Systolic Diameter MM 4.7 cm LA Ao Ratio MM 1.4 AV Cusp Separation MM 2.2 cm DOPPLER AV Peak Velocity 177.0 cm/s AV Peak Gradient 12.5 mmHg LVOT Peak Velocity 129.0 cm/s LVOT Peak Gradient 6.7 mmHg AV Area Cont Eq pk 1.9 cm MR Peak Velocity 456.0 cm/s MR Peak Gradient 83.2 mmHg Mitral E Point Velocity 136.0 cm/s Mitral A Point Velocity 86.9 cm/s Mitral E to A Ratio 1.6 LV E' Lateral Velocity 9.9 cm/s Mitral E to LV E' Lateral Ratio 13.7 LV E' Septal Velocity 6.9 cm/s Mitral E to LV E' Septal Ratio 19.7 TR Peak Velocity 318.0 cm/s TR Peak Gradient 40.4 mmHg Right Atrial Pressure 10.0 mmHg Pulmonary Artery Systolic Pressu 50.4 mmHg Right Ventricular Systolic Press 50.4 mmHg PV Peak Velocity 118.0 cm/s PV Peak Gradient 5.6 mmHg FINDINGS LEFT VENTRICLE The left ventricular systolic function is low normal with an estimated ejection fraction in the rang e of 50- 55%. Wall thickness is normal. Normal left ventricular size. RIGHT VENTRICLE Normal right ventricular size and systolic function. LEFT ATRIUM The left atrial size is mildly dilated. RIGHT ATRIUM The right atrial size is normal. ATRIAL SEPTUM Normal atrial septal thickness without atrial level shunting by limited color doppler interrogation. AORTA The aortic root and proximal ascending aorta are normal in size on limited imaging. MITRAL VALVE Mild mitral valve regurgitation. AORTIC VALVE Trileaflet aortic valve. No aortic valve stenosis or regurgitation. TRICUSPID VALVE There is mild tricuspid regurgitation. The estimated pulmonary arterial pressure is 50.4 mmHg. PULMONARY VALVE No pulmonary valve regurgitation or stenosis. VESSELS The inferior vena cava is normal in size. PERICARDIUM No pericardial effusion. Kendall Aden MD (Electronically Signed) Final Date:28 April 2018 15:28
--- NOTE | 2018-04-28 22:24 | P.PNGI ---
Subjective Interval history: Patient was seen while he was having HIDA scan, he was laying comfortably, he said he has back discomfort from the laying down, she still have some abdominal discomfort mostly in the upper arm, no fevers, no sign of GI bleed Physical Exam Vital signs: Vital Signs 04/28/18 00:00 04/28/18 00:25 04/28/18 00:27 Temperature 99.4 F Pulse Rate 82 79 Respiratory Rate 20 20 Blood Pressure 129/61 Pulse Oximetry 97 04/28/18 03:36 04/28/18 04:00 04/28/18 04:25 Temperature 98.2 F Pulse Rate 72 72 Respiratory Rate 20 20 Blood Pressure 118/57 L Pulse Oximetry 98 04/28/18 05:13 04/28/18 08:00 04/28/18 12:00 Temperature 97.8 F 96.8 F L Pulse Rate 68 70 Respiratory Rate 18 20 20 Blood Pressure 120/59 L 133/71 Pulse Oximetry 97 96 04/28/18 16:00 04/28/18 17:22 04/28/18 20:00 Temperature 98 F 98.8 F Pulse Rate 74 76 Respiratory Rate 20 20 Blood Pressure 160/80 H 136/73 157/87 H Pulse Oximetry 94 L 98 Intake & Output 04/28/18 04/28/18 04/29/18 06:59 18:59 06:59 Intake Total 260 / 260 600 / 600 Balance 260 / 260 600 / 600 Weight 148.3 kg Intake: IV 200 / 200 Maxipime Inj 1,000 MG In NS Inj 200 / 200 100 ML @ 200 mls/hr IV.SIG Q8H [facility] Rx#:[id number] Oral 60 / 60 600 / 600 Other: # Voids 3 4 Date of Last Bowel Movement 04/26/18 Narrative: And male appearing older than stated age and chronically ill appearing no acute distress mildly uncomfortable. T-max 100.8. Present no icterus no petechia ecchymosis or bruises HEENT without oropharyngeal lesions no gum bleeding or hypertrophy no petechia in the palate H x4 no tremors heart lungs clear to auscultation abdomen is very obese soft and nontender with splenomegaly palpable for centimeter below left costal margin abdomen is distended firm and nontender without palpable other organomegaly. Extremity is no edema or evidence of DVTs Labs reviewed platelet count 23,000. - Constitutional no acute distress - Routine HEENT Exam Head: Present: normocephalic Eye: Present: EOMI - Routine Neck Exam Present: supple, full ROM - Routine Respiratory Exam Present: CTA bilaterally - Routine Cardiovascular Exam Present: RRR, S1 - Routine Abdominal Exam Present: soft, normoactive bowel sounds, tenderness, distended - Routine Skin Exam Present: dry - Routine Neurological Exam Present: alert, oriented X3 Results - Labs CBC & Chem 7: 04/28/18 07:20 04/28/18 07:20 Laboratory Results - last 24 hr 04/28/18 04/28/18 04/28/18 03:04 07:20 07:20 CBC w Diff Slide review pending WBC 3.3 L RBC 3.81 L Hgb 10.7 L Hct 31.2 L MCV 82.0 MCH 28.1 MCHC 34.3 RDW 15.2 Plt Count 41 L MPV 9.1 Neut % (Auto) 64.0 Lymph % (Auto) 23.1 [place] % (Auto) 10.7 H Eos % (Auto) 2.0 Baso % (Auto) 0.2 Neut # (Auto) 2.0 Lymph # (Auto) 0.8 L [place] # (Auto) 0.4 Eos # (Auto) 0.1 Baso # (Auto) 0.0 WBC Differential . Diff Scan Auto diff confirmed Differential Comment . Platelet Estimate Low L Platelet Morphology Normal Sodium 138 Potassium 3.6 Chloride 101 Carbon Dioxide 31.7 Anion Gap 5 BUN 9 Creatinine 0.95 Estimated GFR 83 L POC Glucose 327 H Random Glucose 218 H Calcium 7.6 L Tumor Marker AFP 04/28/18 04/28/18 04/28/18 07:20 07:36 11:28 CBC w Diff WBC RBC Hgb Hct MCV MCH MCHC RDW Plt Count MPV Neut % (Auto) Lymph % (Auto) [place] % (Auto) Eos % (Auto) Baso % (Auto) Neut # (Auto) Lymph # (Auto) [place] # (Auto) Eos # (Auto) Baso # (Auto) WBC Differential Diff Scan Differential Comment Platelet Estimate Platelet Morphology Sodium Potassium Chloride Carbon Dioxide Anion Gap BUN Creatinine Estimated GFR POC Glucose 231 H 198 H Random Glucose Calcium Tumor Marker AFP 1.7 04/28/18 16:51 CBC w Diff WBC RBC Hgb Hct MCV MCH MCHC RDW Plt Count MPV Neut % (Auto) Lymph % (Auto) [place] % (Auto) Eos % (Auto) Baso % (Auto) Neut # (Auto) Lymph # (Auto) [place] # (Auto) Eos # (Auto) Baso # (Auto) WBC Differential Diff Scan Differential Comment Platelet Estimate Platelet Morphology Sodium Potassium Chloride Carbon Dioxide Anion Gap BUN Creatinine Estimated GFR POC Glucose 287 H Random Glucose Calcium Tumor Marker AFP Microbiology 04/25/18 18:18 Blood - Peripheral Aerobic Blood Culture - Preliminary No growth in 3 days 04/25/18 18:18 Blood - Peripheral Anaerobic Blood Culture - Preliminary No growth in 3 days 04/25/18 15:10 Blood - Peripheral Aerobic Blood Culture - Preliminary No growth in 3 days 04/25/18 15:10 Blood - Peripheral Anaerobic Blood Culture - Preliminary No growth in 3 days - Imaging Impressions Bile Acid Absorption NM 04/28/18 00:00 CONCLUSION: 1. No cystic duct or distal common bile duct obstruction. 2. Decreased ejection fraction after CCK administration suggesting possible chronic cholecystitis. Clinical correlation is recommended. Assessment and Plan - Plan 1. History of cirrhosis likely related to fatty liver and Matias. 2. Ascites seen on CT scan likely source of SBP 3. 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 4. Remote possibility of underlying fungal, mycobacterial infection and hematological malignancy 5. Recommend switching antibiotics to cefotaxime to treat suspected SBP 6. AFP, bone marrow biopsy ,echo/heart to further workup source of fever 7. EGD and colonoscopy can be done electively 04-28-2018 patient seems to be doing better, no fever, most likely SBP, HIDA scan was done today showing possible chronic cholecystitis, if symptoms continue patient will need surgical evaluation, meanwhile we will continue antibiotics and supportive care, patient has cirrhosis most likely due to fatty liver and Matias, pancytopenia most likely related to cirrhosis and enlarged spleen
[2018-04-28] MEDS: Insulin Detemir Inj 1,000 UNIT/10 ML Vial SQ SCH (23:32)
[2018-04-29] MEDS: Morphine Inj 4 MG/ML Vial IV.PUSH PRN (03:55)
[2018-04-29] MEDS: Insulin NovoLOG Aspart Correctional Sugar Inj SQ SCH ×5 (04:21→21:28)
[2018-04-29 08:04] LABS: Baso % (Auto) 0.2 % (0.0-2.0); Eos # (Auto) 0.1 th/mm3 (0.0-0.4); Eos % (Auto) 1.9 % (0.0-4.0); Hematocrit 31.1 % (39.0-51.0); Hemoglobin 10.6 gm/dL (13.0-17.0); Lymph # (Auto) 0.8 th/mm3 (1.0-4.8); Lymph % (Auto) 18.6 % (9.0-44.0); Mean Corpuscular Hemoglobin 28.1 pg (27.0-34.0); Mean Corpuscular Volume 82.8 fL (80.0-100.0); Mean Platelet Volume 9.3 fL (7.0-11.0); Mono # (Auto) 0.4 th/mm3 (0.0-0.9); Mono % (Auto) 9.3 % (0.0-8.0); Neut # (Auto) 2.8 th/mm3 (1.8-7.7); Platelet Count 52 th/mm3 (150-450); Red Blood Count 3.76 mil/mm3 (4.50-5.90); Red Cell Distribution Width 15.4 % (11.6-17.2); White Blood Count 4.1 th/mm3 (4.0-11.0)
[2018-04-29 08:21] LABS: Albumin 2.1 g/dL (3.4-5.0)
[2018-04-29] MEDS: Gabapentin 300 MG Capsule PO SCH (08:21)
[2018-04-29 08:26] LABS: Total Protein 6.9 g/dL (6.4-8.2)
[2018-04-29 09:20] LABS: Platelet Morphology Normal (Normal)
--- NOTE | 2018-04-29 09:51 | P.PNIM ---
Subjective Interval history: f/u; fever in no acute distress. remains afebrile. minimal to mild abdominal pain. no other complaints. Physical Exam Vital signs: Vital Signs 04/28/18 12:00 04/28/18 16:00 04/28/18 17:22 Temperature 96.8 F L 98 F Pulse Rate 70 74 Respiratory Rate 20 20 Blood Pressure 133/71 160/80 H 136/73 Pulse Oximetry 96 94 L 04/28/18 20:00 04/29/18 00:00 04/29/18 04:00 Temperature 98.8 F 99.4 F 99.3 F Pulse Rate 75 88 83 Respiratory Rate 20 20 20 Blood Pressure 157/87 H 150/69 H 137/63 Pulse Oximetry 98 95 94 L Intake & Output 04/28/18 04/29/18 04/29/18 18:59 06:59 18:59 Intake Total 600 / 600 1640 / 1640 Output Total 60 / 60 Balance 600 / 600 1580 / 1580 Weight 148.5 kg Intake: IV 100 / 100 Rocephin Inj 2,000 MG In NS Inj 100 / 100 100 ML @ 200 mls/hr IV.SIG Q24H [facility] Rx#:[id number] Oral 600 / 600 1540 / 1540 Output: Urine 60 / 60 Other: # Voids 4 5 - Constitutional no acute distress - Routine Respiratory Exam Present: CTA bilaterally - Routine Cardiovascular Exam Present: RRR - Routine Abdominal Exam Present: soft - Routine Extremities Exam Comments: no pedal edema. - Routine Neurological Exam Present: alert, oriented X3 Results - Labs CBC & Chem 7: 04/29/18 07:20 04/28/18 07:20 Laboratory Results - last 24 hr 04/28/18 04/28/18 04/28/18 07:20 11:28 16:51 CBC w Diff WBC RBC Hgb Hct MCV MCH MCHC RDW Plt Count MPV Neut % (Auto) Lymph % (Auto) [place] % (Auto) Eos % (Auto) Baso % (Auto) Neut # (Auto) Lymph # (Auto) [place] # (Auto) Eos # (Auto) Baso # (Auto) WBC Differential Diff Scan Differential Comment Platelet Estimate Platelet Morphology POC Glucose 198 H 287 H Total Bilirubin Direct Bilirubin Indirect Bilirubin AST ALT Alkaline Phosphatase Total Protein Albumin Tumor Marker AFP 1.7 04/28/18 04/29/18 04/29/18 23:28 04:00 07:20 CBC w Diff Slide review pending WBC 4.1 RBC 3.76 L Hgb 10.6 L Hct 31.1 L MCV 82.8 MCH 28.1 MCHC 34.0 RDW 15.4 Plt Count 52 L MPV 9.3 Neut % (Auto) 70.0 Lymph % (Auto) 18.6 [place] % (Auto) 9.3 H Eos % (Auto) 1.9 Baso % (Auto) 0.2 Neut # (Auto) 2.8 Lymph # (Auto) 0.8 L [place] # (Auto) 0.4 Eos # (Auto) 0.1 Baso # (Auto) 0.0 WBC Differential . Diff Scan Auto diff confirmed Differential Comment . Platelet Estimate Low L Platelet Morphology Normal POC Glucose 346 H 288 H Total Bilirubin Direct Bilirubin Indirect Bilirubin AST ALT Alkaline Phosphatase Total Protein Albumin Tumor Marker AFP 04/29/18 04/29/18 07:20 07:55 CBC w Diff WBC RBC Hgb Hct MCV MCH MCHC RDW Plt Count MPV Neut % (Auto) Lymph % (Auto) [place] % (Auto) Eos % (Auto) Baso % (Auto) Neut # (Auto) Lymph # (Auto) [place] # (Auto) Eos # (Auto) Baso # (Auto) WBC Differential Diff Scan Differential Comment Platelet Estimate Platelet Morphology POC Glucose 331 H Total Bilirubin 0.8 Direct Bilirubin 0.4 H Indirect Bilirubin 0.4 AST 22 ALT 31 Alkaline Phosphatase 115 Total Protein 6.9 Albumin 2.1 L Tumor Marker AFP Microbiology 04/25/18 18:18 Blood - Peripheral Aerobic Blood Culture - Preliminary No growth in 3 days 04/25/18 18:18 Blood - Peripheral Anaerobic Blood Culture - Preliminary No growth in 3 days 04/25/18 15:10 Blood - Peripheral Aerobic Blood Culture - Preliminary No growth in 3 days 04/25/18 15:10 Blood - Peripheral Anaerobic Blood Culture - Preliminary No growth in 3 days - Imaging Impressions Bile Acid Absorption NM 04/28/18 00:00 CONCLUSION: 1. No cystic duct or distal common bile duct obstruction. 2. Decreased ejection fraction after CCK administration suggesting possible chronic cholecystitis. Clinical correlation is recommended. Assessment and Plan - Plan A/P - fever- possible UTI/ SBP will continue with IV antibiotic- UC with strep- blood cultures from 04/25 negative- CXR with no infiltrate. recent abdominal CT with no acute intraabdominal abnormality. chest CTA with bilateral atelectasis and no PE on IV Rocephin- flu test negative- ID/GI following. -thrombocytopenia- improving. due to Cirrhosis- no active bleed- continue to monitor closely- Hematology consult appreciated. -diabetes mellitus- continue with accu-check with SSI- A1c 9.7- continue Levemir and consult cosmetology educator. -Cirrhosis- likely due to fatty liver and ZULETA- abdominal US with no ascites- continue IV antibiotic- HIDA with chronic cholecystitis- GI following. -hypertension; hold lisinopril and continue to monitor the BP -acute kidney injury; improved- stopped IV fluid. -mild hypokalemia; replaced. -DVT prophylaxis with SCD's- no chemical prophylaxis due to liver disease/ thrombocytopenia. Discharge Planning: dc home within the next 24-48 hrs if stable and cleared by consultants.
--- NOTE | 2018-04-29 10:58 | P.PNGI ---
Subjective Interval history: Patient laying in bed seems to be comfortable, significant reduction of abdominal pain, still some discomfort, no fever Physical Exam Vital signs: Vital Signs 04/28/18 12:00 04/28/18 16:00 04/28/18 17:22 Temperature 96.8 F L 98 F Pulse Rate 70 74 Respiratory Rate 20 20 Blood Pressure 133/71 160/80 H 136/73 Pulse Oximetry 96 94 L 04/28/18 20:00 04/29/18 00:00 04/29/18 04:00 Temperature 98.8 F 99.4 F 99.3 F Pulse Rate 75 88 83 Respiratory Rate 20 20 20 Blood Pressure 157/87 H 150/69 H 137/63 Pulse Oximetry 98 95 94 L 04/29/18 08:00 Temperature 98.2 F Pulse Rate 85 Respiratory Rate 20 Blood Pressure 165/79 H Pulse Oximetry 96 Intake & Output 04/28/18 04/29/18 04/29/18 18:59 06:59 18:59 Intake Total 600 / 600 1640 / 1640 Output Total 60 / 60 Balance 600 / 600 1580 / 1580 Weight 148.5 kg Intake: IV 100 / 100 Rocephin Inj 2,000 MG In NS Inj 100 / 100 100 ML @ 200 mls/hr IV.SIG Q24H LUCIO Rx#:[id number] Oral 600 / 600 1540 / 1540 Output: Urine 60 / 60 Other: # Voids 4 5 - Constitutional no acute distress, morbidly obese - Routine HEENT Exam Head: Present: normocephalic Eye: Present: EOMI, PERRL ENT: Present: mucous membranes moist - Routine Neck Exam Present: supple, full ROM - Routine Respiratory Exam Present: CTA bilaterally - Routine Cardiovascular Exam Present: RRR, S1 - Routine Abdominal Exam Present: soft, normoactive bowel sounds, tenderness (Minimal on the right side of the abdomen) Results - Labs CBC & Chem 7: 04/29/18 07:20 04/28/18 07:20 Laboratory Results - last 24 hr 04/28/18 04/28/18 04/28/18 07:20 11:28 16:51 CBC w Diff WBC RBC Hgb Hct MCV MCH MCHC RDW Plt Count MPV Neut % (Auto) Lymph % (Auto) [place] % (Auto) Eos % (Auto) Baso % (Auto) Neut # (Auto) Lymph # (Auto) [place] # (Auto) Eos # (Auto) Baso # (Auto) WBC Differential Diff Scan Differential Comment Platelet Estimate Platelet Morphology POC Glucose 198 H 287 H Total Bilirubin Direct Bilirubin Indirect Bilirubin AST ALT Alkaline Phosphatase Total Protein Albumin Tumor Marker AFP 1.7 04/28/18 04/29/18 04/29/18 23:28 04:00 07:20 CBC w Diff Slide review pending WBC 4.1 RBC 3.76 L Hgb 10.6 L Hct 31.1 L MCV 82.8 MCH 28.1 MCHC 34.0 RDW 15.4 Plt Count 52 L MPV 9.3 Neut % (Auto) 70.0 Lymph % (Auto) 18.6 [place] % (Auto) 9.3 H Eos % (Auto) 1.9 Baso % (Auto) 0.2 Neut # (Auto) 2.8 Lymph # (Auto) 0.8 L [place] # (Auto) 0.4 Eos # (Auto) 0.1 Baso # (Auto) 0.0 WBC Differential . Diff Scan Auto diff confirmed Differential Comment . Platelet Estimate Low L Platelet Morphology Normal POC Glucose 346 H 288 H Total Bilirubin Direct Bilirubin Indirect Bilirubin AST ALT Alkaline Phosphatase Total Protein Albumin Tumor Marker AFP 04/29/18 04/29/18 07:20 07:55 CBC w Diff WBC RBC Hgb Hct MCV MCH MCHC RDW Plt Count MPV Neut % (Auto) Lymph % (Auto) [place] % (Auto) Eos % (Auto) Baso % (Auto) Neut # (Auto) Lymph # (Auto) [place] # (Auto) Eos # (Auto) Baso # (Auto) WBC Differential Diff Scan Differential Comment Platelet Estimate Platelet Morphology POC Glucose 331 H Total Bilirubin 0.8 Direct Bilirubin 0.4 H Indirect Bilirubin 0.4 AST 22 ALT 31 Alkaline Phosphatase 115 Total Protein 6.9 Albumin 2.1 L Tumor Marker AFP Microbiology 04/25/18 18:18 Blood - Peripheral Aerobic Blood Culture - Preliminary No growth in 3 days 04/25/18 18:18 Blood - Peripheral Anaerobic Blood Culture - Preliminary No growth in 3 days 04/25/18 15:10 Blood - Peripheral Aerobic Blood Culture - Preliminary No growth in 3 days 04/25/18 15:10 Blood - Peripheral Anaerobic Blood Culture - Preliminary No growth in 3 days - Imaging Impressions Bile Acid Absorption NM 04/28/18 00:00 CONCLUSION: 1. No cystic duct or distal common bile duct obstruction. 2. Decreased ejection fraction after CCK administration suggesting possible chronic cholecystitis. Clinical correlation is recommended. Assessment and Plan - Plan 1. History of cirrhosis likely related to fatty liver and Matias. 2. Ascites seen on CT scan likely source of SBP 3. 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 4. Remote possibility of underlying fungal, mycobacterial infection and hematological malignancy 5. Recommend switching antibiotics to cefotaxime to treat suspected SBP 6. AFP, bone marrow biopsy ,echo/heart to further workup source of fever 7. EGD and colonoscopy can be done electively 04-28-2018 patient seems to be doing better, no fever, most likely SBP, HIDA scan was done today showing possible chronic cholecystitis, if symptoms continue patient will need surgical evaluation, meanwhile we will continue antibiotics and supportive care, patient has cirrhosis most likely due to fatty liver and Matias, pancytopenia most likely related to cirrhosis and enlarged spleen 04/29/2018 patient is much better, no abdominal pain, minimal discomfort, no fever, seems to be responding to the antibiotics, if doing okay tomorrow this can be switched to oral and be discharged home on a week of antibiotic If symptoms recur or persist patient may need to be considered for lap rosalba Patient is morbidly obese he lost significant amount of weight go through out the last year, need to continue that Elevated liver function tests secondary to Matias, patient understand that he need to be on low-fat diet exercise and eventually may need liver transplant
[2018-04-29] MEDS: Insulin Detemir Inj 1,000 UNIT/10 ML Vial SQ SCH ×2 (11:04→21:28)
--- NOTE | 2018-04-29 18:27 | P.PNID ---
Subjective Remarks: NO FEVER OR CHILLS NO NVD abdominal pain better Antibiotics: rocephin Lines: Peripheral IV line Past Medical History: Cirrhosis Thrombocytopenia Allergies/Adverse Reactions: Allergies No Known Allergies Allergy (Verified 04/24/18 17:51) Objective Vital Signs 04/28/18 20:00 04/29/18 00:00 04/29/18 04:00 Temperature 98.8 F 99.4 F 99.3 F Pulse Rate 75 88 83 Respiratory Rate 20 20 20 Blood Pressure 157/87 H 150/69 H 137/63 Pulse Oximetry 98 95 94 L 04/29/18 08:00 04/29/18 12:00 04/29/18 16:00 Temperature 98.2 F 98 F 98.3 F Pulse Rate 76 70 72 Respiratory Rate 20 20 20 Blood Pressure 165/79 H 137/86 145/72 H Pulse Oximetry 96 95 96 Intake & Output 04/28/18 04/29/18 04/29/18 18:59 06:59 18:59 Intake Total 600 / 600 1640 / 1640 1080 / 1080 Output Total 60 / 60 Balance 600 / 600 1580 / 1580 1080 / 1080 Weight 148.5 kg Intake: IV 100 / 100 Rocephin Inj 2,000 MG In NS Inj 100 / 100 100 ML @ 200 mls/hr IV.SIG Q24H LUCIO Rx#:[id number] Oral 600 / 600 1540 / 1540 1080 / 1080 Output: Urine 60 / 60 Other: # Voids 4 5 5 # Bowel Movements 1 04/25/18 18:18 Blood - Peripheral Aerobic Blood Culture - Preliminary No growth in 4 days 04/25/18 18:18 Blood - Peripheral Anaerobic Blood Culture - Preliminary No growth in 4 days 04/25/18 15:10 Blood - Peripheral Aerobic Blood Culture - Preliminary No growth in 4 days 04/25/18 15:10 Blood - Peripheral Anaerobic Blood Culture - Preliminary No growth in 4 days 04/26/18 22:24 Nasal Wash Influenza Types A,B Antigen - Final Negative for FLU A and B antigen Infection due to influenza A or B cannot be ruled out since the antigen present in the sample may be below the detection limit of the test. Lab - Hematology Results 04/28/18 04/29/18 07:20 07:20 CBC w Diff Slide review pending Slide review pending WBC 3.3 L 4.1 RBC 3.81 L 3.76 L Hgb 10.7 L 10.6 L Hct 31.2 L 31.1 L MCV 82.0 82.8 MCH 28.1 28.1 MCHC 34.3 34.0 RDW 15.2 15.4 Plt Count 41 L 52 L MPV 9.1 9.3 Neut % (Auto) 64.0 70.0 Lymph % (Auto) 23.1 18.6 [place] % (Auto) 10.7 H 9.3 H Eos % (Auto) 2.0 1.9 Baso % (Auto) 0.2 0.2 Neut # (Auto) 2.0 2.8 Lymph # (Auto) 0.8 L 0.8 L [place] # (Auto) 0.4 0.4 Eos # (Auto) 0.1 0.1 Baso # (Auto) 0.0 0.0 WBC Differential . . Diff Scan Auto diff confirmed Auto diff confirmed Differential Comment . . Platelet Estimate Low L Low L Platelet Morphology Normal Normal Lab - Chemistry Results 04/27/18 04/28/18 04/28/18 20:09 03:04 07:20 Sodium 138 Potassium 3.6 Chloride 101 Carbon Dioxide 31.7 Anion Gap 5 BUN 9 Creatinine 0.95 Estimated GFR 83 L POC Glucose 358 H 327 H Random Glucose 218 H Calcium 7.6 L Total Bilirubin Direct Bilirubin Indirect Bilirubin AST ALT Alkaline Phosphatase Total Protein Albumin Tumor Marker AFP 04/28/18 04/28/18 04/28/18 07:20 07:36 11:28 Sodium Potassium Chloride Carbon Dioxide Anion Gap BUN Creatinine Estimated GFR POC Glucose 231 H 198 H Random Glucose Calcium Total Bilirubin Direct Bilirubin Indirect Bilirubin AST ALT Alkaline Phosphatase Total Protein Albumin Tumor Marker AFP 1.7 04/28/18 04/28/18 04/29/18 16:51 23:28 04:00 Sodium Potassium Chloride Carbon Dioxide Anion Gap BUN Creatinine Estimated GFR POC Glucose 287 H 346 H 288 H Random Glucose Calcium Total Bilirubin Direct Bilirubin Indirect Bilirubin AST ALT Alkaline Phosphatase Total Protein Albumin Tumor Marker AFP 04/29/18 04/29/18 04/29/18 07:20 07:55 12:01 Sodium Potassium Chloride Carbon Dioxide Anion Gap BUN Creatinine Estimated GFR POC Glucose 331 H 308 H Random Glucose Calcium Total Bilirubin 0.8 Direct Bilirubin 0.4 H Indirect Bilirubin 0.4 AST 22 ALT 31 Alkaline Phosphatase 115 Total Protein 6.9 Albumin 2.1 L Tumor Marker AFP 04/29/18 16:47 Sodium Potassium Chloride Carbon Dioxide Anion Gap BUN Creatinine Estimated GFR POC Glucose 265 H Random Glucose Calcium Total Bilirubin Direct Bilirubin Indirect Bilirubin AST ALT Alkaline Phosphatase Total Protein Albumin Tumor Marker AFP Imaging: ITS Impressions Chest X-Ray 04/25/18 00:00 CONCLUSION: Mild congestive failure. No alveolar consolidation to suggest an inflammatory process. Abdomen Ultrasound 04/27/18 00:00 CONCLUSION: 1. No ascites. Chest CTA 04/27/18 00:00 CONCLUSION: 1. Cirrhosis and portal hypertension with splenomegaly and ascites. 2. No evidence for pulmonary embolism. 3. Bilateral subsegmental atelectatic changes are appreciated. Bile Acid Absorption NM 04/28/18 00:00 CONCLUSION: 1. No cystic duct or distal common bile duct obstruction. 2. Decreased ejection fraction after CCK administration suggesting possible chronic cholecystitis. Clinical correlation is recommended. Physical Exam: Alert, Oriented x 3 No thrush Chest : BSB decreased Heart S1 S2 normal Abd: Ascites- distended Bowel sounds heard Assessment and Plan - Plan 1. Follow Blood cultures- so far negative 2. Follow Urine culture- grew Strep repeat is negative 3. Influenza test- negative 4. Monitor clinically 5. CT Chest- atlectasis 6. US abdomen- No ascites 7. Continue rocephin 1 g q24hrs 8. hida + suggest chronic cholecystis 9 can change to po cefuroxime 500mg po bid x 7d
[2018-04-30] MEDS: Insulin NovoLOG Aspart Correctional Sugar Inj SQ SCH ×5 (03:24→21:02)
[2018-04-30 06:59] LABS: Baso % (Auto) 0.3 % (0.0-2.0); Eos # (Auto) 0.1 th/mm3 (0.0-0.4); Eos % (Auto) 2.1 % (0.0-4.0); Hematocrit 32.9 % (39.0-51.0); Hemoglobin 10.5 gm/dL (13.0-17.0); Lymph # (Auto) 0.8 th/mm3 (1.0-4.8); Lymph % (Auto) 20.1 % (9.0-44.0); Mean Corpuscular Hemoglobin 26.9 pg (27.0-34.0); Mean Platelet Volume 9.3 fL (7.0-11.0); Mono # (Auto) 0.3 th/mm3 (0.0-0.9); Mono % (Auto) 7.8 % (0.0-8.0); Neut # (Auto) 2.6 th/mm3 (1.8-7.7); Neut % (Auto) 69.7 % (16.0-70.0); Platelet Count 69 th/mm3 (150-450); Red Blood Count 3.91 mil/mm3 (4.50-5.90); White Blood Count 3.8 th/mm3 (4.0-11.0)
[2018-04-30 07:25] LABS: Platelet Morphology Normal (Normal)
[2018-04-30] MEDS: Insulin Detemir Inj 1,000 UNIT/10 ML Vial SQ SCH ×2 (08:45→21:01)
[2018-04-30] MEDS: Gabapentin 300 MG Capsule PO SCH (08:45)
--- NOTE | 2018-04-30 08:56 | P.PNIM ---
Subjective Interval history: f/u; fever in no acute distress. but not feeling well with some epigastric pain and nausea. no emesis and no fever. BP trend noted. d/w the RN. Physical Exam Vital signs: Vital Signs 04/29/18 12:00 04/29/18 16:00 04/29/18 20:00 Temperature 98 F 98.3 F 97.9 F Pulse Rate 70 72 71 Respiratory Rate 20 20 18 Blood Pressure 137/86 145/72 H 155/83 H Pulse Oximetry 95 96 97 04/30/18 00:00 04/30/18 04:00 Temperature 99.2 F 98.8 F Pulse Rate 77 73 Respiratory Rate 18 18 Blood Pressure 155/68 H 137/81 Pulse Oximetry 97 94 L Intake & Output 04/29/18 04/30/18 04/30/18 18:59 06:59 18:59 Intake Total 1080 / 1080 500 / 500 Output Total 1060 / 1060 Balance 1080 / 1080 -560 / -560 Weight 148.6 kg Intake: IV 100 / 100 Rocephin Inj 2,000 MG In NS Inj 100 / 100 100 ML @ 200 mls/hr IV.SIG Q24H LUCIO Rx#:[id number] Oral 1080 / 1080 400 / 400 Output: Urine 1060 / 1060 Other: # Voids 5 # Bowel Movements 1 - Constitutional no acute distress - Routine Respiratory Exam Present: CTA bilaterally - Routine Cardiovascular Exam Present: RRR - Routine Abdominal Exam Present: soft - Routine Extremities Exam Comments: no pedal edema. - Routine Neurological Exam Present: alert, oriented X3 Results - Labs CBC & Chem 7: 04/30/18 06:08 04/28/18 07:20 Laboratory Results - last 24 hr 04/29/18 04/29/18 04/29/18 07:20 12:01 16:47 CBC w Diff WBC RBC Hgb Hct MCV MCH MCHC RDW Plt Count MPV Neut % (Auto) Lymph % (Auto) [place] % (Auto) Eos % (Auto) Baso % (Auto) Neut # (Auto) Lymph # (Auto) [place] # (Auto) Eos # (Auto) Baso # (Auto) WBC Differential . Diff Scan Auto diff confirmed Differential Comment Platelet Estimate Low L Platelet Morphology Normal POC Glucose 308 H 265 H 04/29/18 04/30/18 04/30/18 21:18 03:22 06:08 CBC w Diff Slide review pending WBC 3.8 L RBC 3.91 L Hgb 10.5 L Hct 32.9 L MCV 84.0 MCH 26.9 L MCHC 32.0 RDW 15.0 Plt Count 69 L D MPV 9.3 Neut % (Auto) 69.7 Lymph % (Auto) 20.1 [place] % (Auto) 7.8 Eos % (Auto) 2.1 Baso % (Auto) 0.3 Neut # (Auto) 2.6 Lymph # (Auto) 0.8 L [place] # (Auto) 0.3 Eos # (Auto) 0.1 Baso # (Auto) 0.0 WBC Differential . Diff Scan Auto diff confirmed Differential Comment . Platelet Estimate Low L Platelet Morphology Normal POC Glucose 325 H 316 H 04/30/18 07:54 CBC w Diff WBC RBC Hgb Hct MCV MCH MCHC RDW Plt Count MPV Neut % (Auto) Lymph % (Auto) [place] % (Auto) Eos % (Auto) Baso % (Auto) Neut # (Auto) Lymph # (Auto) [place] # (Auto) Eos # (Auto) Baso # (Auto) WBC Differential Diff Scan Differential Comment Platelet Estimate Platelet Morphology POC Glucose 262 H Microbiology 04/25/18 18:18 Blood - Peripheral Aerobic Blood Culture - Preliminary No growth in 4 days 04/25/18 18:18 Blood - Peripheral Anaerobic Blood Culture - Preliminary No growth in 4 days 04/25/18 15:10 Blood - Peripheral Aerobic Blood Culture - Preliminary No growth in 4 days 04/25/18 15:10 Blood - Peripheral Anaerobic Blood Culture - Preliminary No growth in 4 days Assessment and Plan - Plan A/P - fever- possible UTI/ SBP will continue with IV antibiotic- UC with strep- blood cultures from 04/25 negative- CXR with no infiltrate. recent abdominal CT with no acute intraabdominal abnormality. chest CTA with bilateral atelectasis and no PE on IV Rocephin- flu test negative- ID/GI following. -nausea; antiemetics as needed. -thrombocytopenia- improving. due to Cirrhosis- no active bleed- continue to monitor closely- Hematology consult appreciated. -diabetes mellitus- continue with accu-check with SSI- A1c 9.7- continue Levemir and consulted special education paraeducator. -Cirrhosis- likely due to fatty liver and ZULETA- abdominal US with no ascites- continue IV antibiotic- HIDA with chronic cholecystitis- GI following. -hypertension; resume Lisinopril and continue to monitor BP. -acute kidney injury; improved- stopped IV fluid. -mild hypokalemia; replaced. -DVT prophylaxis with SCD's- no chemical prophylaxis due to liver disease/ thrombocytopenia. Discharge Planning: dc home within the next 24 hrs if stable and cleared by consultants.
--- NOTE | 2018-04-30 09:48 | P.PNID ---
Subjective Remarks: C/o RUQ pain and nausea today NO FEVER OR CHILLS Antibiotics: rocephin Lines: Peripheral IV line Past Medical History: Cirrhosis Thrombocytopenia Diabetes Allergies/Adverse Reactions: Allergies No Known Allergies Allergy (Verified 04/24/18 17:51) Objective Vital Signs 04/29/18 12:00 04/29/18 16:00 04/29/18 20:00 Temperature 98 F 98.3 F 97.9 F Pulse Rate 70 72 71 Respiratory Rate 20 20 18 Blood Pressure 137/86 145/72 H 155/83 H Pulse Oximetry 95 96 97 04/30/18 00:00 04/30/18 04:00 Temperature 99.2 F 98.8 F Pulse Rate 77 73 Respiratory Rate 18 18 Blood Pressure 155/68 H 137/81 Pulse Oximetry 97 94 L Intake & Output 04/29/18 04/30/18 04/30/18 18:59 06:59 18:59 Intake Total 1080 / 1080 500 / 500 Output Total 1060 / 1060 Balance 1080 / 1080 -560 / -560 Weight 148.6 kg Intake: IV 100 / 100 Rocephin Inj 2,000 MG In NS Inj 100 / 100 100 ML @ 200 mls/hr IV.SIG Q24H LUCIO Rx#:[id number] Oral 1080 / 1080 400 / 400 Output: Urine 1060 / 1060 Other: # Voids 5 # Bowel Movements 1 04/25/18 18:18 Blood - Peripheral Aerobic Blood Culture - Preliminary No growth in 4 days 04/25/18 18:18 Blood - Peripheral Anaerobic Blood Culture - Preliminary No growth in 4 days 04/25/18 15:10 Blood - Peripheral Aerobic Blood Culture - Preliminary No growth in 4 days 04/25/18 15:10 Blood - Peripheral Anaerobic Blood Culture - Preliminary No growth in 4 days Lab - Hematology Results 04/29/18 04/30/18 07:20 06:08 CBC w Diff Slide review pending Slide review pending WBC 4.1 3.8 L RBC 3.76 L 3.91 L Hgb 10.6 L 10.5 L Hct 31.1 L 32.9 L MCV 82.8 84.0 MCH 28.1 26.9 L MCHC 34.0 32.0 RDW 15.4 15.0 Plt Count 52 L 69 L D MPV 9.3 9.3 Neut % (Auto) 70.0 69.7 Lymph % (Auto) 18.6 20.1 [place] % (Auto) 9.3 H 7.8 Eos % (Auto) 1.9 2.1 Baso % (Auto) 0.2 0.3 Neut # (Auto) 2.8 2.6 Lymph # (Auto) 0.8 L 0.8 L [place] # (Auto) 0.4 0.3 Eos # (Auto) 0.1 0.1 Baso # (Auto) 0.0 0.0 WBC Differential . . Diff Scan Auto diff confirmed Auto diff confirmed Differential Comment . . Platelet Estimate Low L Low L Platelet Morphology Normal Normal Lab - Chemistry Results 04/28/18 04/28/18 04/28/18 07:20 11:28 16:51 POC Glucose 198 H 287 H Total Bilirubin Direct Bilirubin Indirect Bilirubin AST ALT Alkaline Phosphatase Total Protein Albumin Tumor Marker AFP 1.7 04/28/18 04/29/18 04/29/18 23:28 04:00 07:20 POC Glucose 346 H 288 H Total Bilirubin 0.8 Direct Bilirubin 0.4 H Indirect Bilirubin 0.4 AST 22 ALT 31 Alkaline Phosphatase 115 Total Protein 6.9 Albumin 2.1 L Tumor Marker AFP 04/29/18 04/29/18 04/29/18 07:55 12:01 16:47 POC Glucose 331 H 308 H 265 H Total Bilirubin Direct Bilirubin Indirect Bilirubin AST ALT Alkaline Phosphatase Total Protein Albumin Tumor Marker AFP 04/29/18 04/30/18 04/30/18 21:18 03:22 07:54 POC Glucose 325 H 316 H 262 H Total Bilirubin Direct Bilirubin Indirect Bilirubin AST ALT Alkaline Phosphatase Total Protein Albumin Tumor Marker AFP Imaging: ITS Impressions Chest X-Ray 04/25/18 00:00 CONCLUSION: Mild congestive failure. No alveolar consolidation to suggest an inflammatory process. Abdomen Ultrasound 04/27/18 00:00 CONCLUSION: 1. No ascites. Chest CTA 04/27/18 00:00 CONCLUSION: 1. Cirrhosis and portal hypertension with splenomegaly and ascites. 2. No evidence for pulmonary embolism. 3. Bilateral subsegmental atelectatic changes are appreciated. Bile Acid Absorption NM 04/28/18 00:00 CONCLUSION: 1. No cystic duct or distal common bile duct obstruction. 2. Decreased ejection fraction after CCK administration suggesting possible chronic cholecystitis. Clinical correlation is recommended. Physical Exam: Alert, Oriented x 3 No thrush Chest : BSB decreased Heart S1 S2 normal Abd: Ascites- distended Bowel sounds heard Assessment and Plan (1) Fever Status: Acute Code(s): R50.9 - Fever, unspecified (2) UTI (urinary tract infection) Status: Acute Code(s): N39.0 - Urinary tract infection, site not specified (3) Diabetes Status: Acute Code(s): E11.9 - Type 2 diabetes mellitus without complications (4) Liver cirrhosis Status: Acute Code(s): K74.60 - Unspecified cirrhosis of liver - Plan 1. Follow Blood cultures- so far negative 2. Follow Urine culture- grew Strep repeat is negative 3. Influenza test- negative 4. Monitor clinically 5. CT Chest- atlectasis 6. US abdomen- No ascites 7. Continue rocephin 2 g q24hrs 8. hida + suggest chronic cholecystis 9 can change to po cefuroxime 500mg po bid x 7d when ready for discharge 10. Patinet c/o more pain , nausea today - check LFTs and Lipase- if any worsening may need to consider Surgical evaluation
[2018-04-30] MEDS: Lisinopril 10 MG Tablet PO SCH (09:57)
[2018-04-30 10:23] LABS: Albumin 2.1 g/dL (3.4-5.0)
[2018-04-30 10:25] LABS: Total Protein 7.1 g/dL (6.4-8.2)
--- NOTE | 2018-04-30 13:09 | P.PNGI ---
Subjective Interval history: Worsening nausea and lower abdominal pain Physical Exam Vital signs: Vital Signs 04/29/18 16:00 04/29/18 20:00 04/30/18 00:00 Temperature 98.3 F 97.9 F 99.2 F Pulse Rate 72 71 77 Respiratory Rate 20 18 18 Blood Pressure 145/72 H 155/83 H 155/68 H Pulse Oximetry 96 97 97 04/30/18 04:00 04/30/18 08:00 04/30/18 12:00 Temperature 98.8 F 99.2 F Pulse Rate 73 72 78 Respiratory Rate 18 20 Blood Pressure 137/81 171/93 H Pulse Oximetry 94 L 97 Intake & Output 04/29/18 04/30/18 04/30/18 18:59 06:59 18:59 Intake Total 1080 / 1080 500 / 500 120 / 120 Output Total 1060 / 1060 200 / 200 Balance 1080 / 1080 -560 / -560 -80 / -80 Weight 148.6 kg Intake: IV 100 / 100 Rocephin Inj 2,000 MG In NS Inj 100 / 100 100 ML @ 200 mls/hr IV.SIG Q24H LUCIO Rx#:[id number] Oral 1080 / 1080 400 / 400 120 / 120 Output: Urine 1060 / 1060 200 / 200 Other: # Voids 5 # Bowel Movements 1 - Constitutional no acute distress - Routine HEENT Exam Head: Present: normocephalic Eye: Present: EOMI - Routine Neck Exam Present: supple - Routine Respiratory Exam Present: CTA bilaterally - Routine Cardiovascular Exam Present: RRR - Routine Abdominal Exam Present: soft, tenderness, distended Results - Labs CBC & Chem 7: 04/30/18 06:08 04/28/18 07:20 Laboratory Results - last 24 hr 04/29/18 04/29/18 04/30/18 16:47 21:18 03:22 CBC w Diff WBC RBC Hgb Hct MCV MCH MCHC RDW Plt Count MPV Neut % (Auto) Lymph % (Auto) [place] % (Auto) Eos % (Auto) Baso % (Auto) Neut # (Auto) Lymph # (Auto) [place] # (Auto) Eos # (Auto) Baso # (Auto) WBC Differential Diff Scan Differential Comment Platelet Estimate Platelet Morphology POC Glucose 265 H 325 H 316 H Total Bilirubin Direct Bilirubin Indirect Bilirubin AST ALT Alkaline Phosphatase Total Protein Albumin Lipase 1004/30/18 04/30/18 06:08 06:08 07:54 CBC w Diff Slide review pending WBC 3.8 L RBC 3.91 L Hgb 10.5 L Hct 32.9 L MCV 84.0 MCH 26.9 L MCHC 32.0 RDW 15.0 Plt Count 69 L D MPV 9.3 Neut % (Auto) 69.7 Lymph % (Auto) 20.1 [place] % (Auto) 7.8 Eos % (Auto) 2.1 Baso % (Auto) 0.3 Neut # (Auto) 2.6 Lymph # (Auto) 0.8 L [place] # (Auto) 0.3 Eos # (Auto) 0.1 Baso # (Auto) 0.0 WBC Differential . Diff Scan Auto diff confirmed Differential Comment . Platelet Estimate Low L Platelet Morphology Normal POC Glucose 262 H Total Bilirubin 0.5 Direct Bilirubin 0.3 H Indirect Bilirubin 0.2 AST 26 ALT 36 Alkaline Phosphatase 135 H Total Protein 7.1 Albumin 2.1 L Lipase 88 04/30/18 11:56 CBC w Diff WBC RBC Hgb Hct MCV MCH MCHC RDW Plt Count MPV Neut % (Auto) Lymph % (Auto) [place] % (Auto) Eos % (Auto) Baso % (Auto) Neut # (Auto) Lymph # (Auto) [place] # (Auto) Eos # (Auto) Baso # (Auto) WBC Differential Diff Scan Differential Comment Platelet Estimate Platelet Morphology POC Glucose 303 H Total Bilirubin Direct Bilirubin Indirect Bilirubin AST ALT Alkaline Phosphatase Total Protein Albumin Lipase Microbiology 04/25/18 18:18 Blood - Peripheral Aerobic Blood Culture - Final No growth in 5 days 04/25/18 18:18 Blood - Peripheral Anaerobic Blood Culture - Final No growth in 5 days 04/25/18 15:10 Blood - Peripheral Aerobic Blood Culture - Final No growth in 5 days 04/25/18 15:10 Blood - Peripheral Anaerobic Blood Culture - Final No growth in 5 days Assessment and Plan - Plan 1. History of cirrhosis likely related to fatty liver and Matias. 2. Ascites seen on CT scan likely source of SBP 3. 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 4. Remote possibility of underlying fungal, mycobacterial infection and hematological malignancy 5. Recommend switching antibiotics to cefotaxime to treat suspected SBP 6. AFP, bone marrow biopsy ,echo/heart to further workup source of fever 7. EGD and colonoscopy can be done electively 10-20-2018 patient seems to be doing better, no fever, most likely SBP, HIDA scan was done today showing possible chronic cholecystitis, if symptoms continue patient will need surgical evaluation, meanwhile we will continue antibiotics and supportive care, patient has cirrhosis most likely due to fatty liver and Matias, pancytopenia most likely related to cirrhosis and enlarged spleen 04/29/2018 patient is much better, no abdominal pain, minimal discomfort, no fever, seems to be responding to the antibiotics, if doing okay tomorrow this can be switched to oral and be discharged home on a week of antibiotic If symptoms recur or persist patient may need to be considered for lap rosalba Patient is morbidly obese he lost significant amount of weight go through out the last year, need to continue that Elevated liver function tests secondary to Matias, patient understand that he need to be on low-fat diet exercise and eventually may need liver transplant 04/30/18: worsening nausea and lower abdominal pain. ? cholecystitis but difficult to evaluate due to body habitus. Labs reviewed. Would not be a candidate for surgery due to thrombocytopenia and body habitus. Possible egd if symptoms persist. Consider surgery evaluation.
[2018-05-01] MEDS: Insulin NovoLOG Aspart Correctional Sugar Inj SQ SCH ×4 (03:18→16:44)
[2018-05-01] MEDS: Lisinopril 10 MG Tablet PO SCH (08:19)
[2018-05-01] MEDS: Insulin Detemir Inj 1,000 UNIT/10 ML Vial SQ SCH (08:19)
[2018-05-01] MEDS: Gabapentin 300 MG Capsule PO SCH (08:19)
--- NOTE | 2018-05-01 09:08 | P.DS ---
Date of admission: 04/24/18 23:40 Primary care physician: Leslie Arita Brief History from admission: patient is a 53 y/o male with history of Cirrhosis,diabetes and hypertension who initially presented to ER with abdominal pain two days ago. he says the he received pain medication and a dose of antibiotic and then was discharged home. he says that he woke up yesterday morning and noticed that his blood sugar was 560. he drank lots of fluid but he says that he didn't take his metformin because of the IV contrast that he received the day before. he says that he checked his blood sugar again and when it was read as high he came back to ER. he says that he had some right sided chest pain. he denies any nausea, vomiting , diaphoresis. he says that he had some lower abdominal pain which somewhat improved. he denies any urinary complaints. DS: Medications - Discharge Medications Prescriptions: cefuroxime axetil 500 mg PO Q12H 7 Days #28 tab insulin aspart U-100 [Novolog Flexpen U-100 Insulin] See Label Instructions .ROUTE .COMPLEX 30 Days ml insulin detemir U-100 [Levemir FlexTouch U-100 Insuln] 10 unit SUBCUT BID 30 Days #6 ml DS: Summary Hospital Course: - fever- possible UTI/ SBP will continue with IV antibiotic- UC with strep- blood cultures from 04/25 negative- CXR with no infiltrate. recent abdominal CT with no acute intraabdominal abnormality. chest CTA with bilateral atelectasis and no PE on IV Rocephin- flu test negative- ID/GI following; will switch to po Cefuroxime upon discharge. -nausea; antiemetics as needed. -thrombocytopenia- improving. due to Cirrhosis- no active bleed- continue to monitor closely- Hematology consult appreciated. -diabetes mellitus- continue with accu-check with SSI- A1c 9.7- continue Levemir and consulted practical nursing faculty. -Cirrhosis- likely due to fatty liver and ZULETA- abdominal US with no ascites- - HIDA with chronic cholecystitis- GI following. -hypertension; resumed Lisinopril and continue to monitor BP. -acute kidney injury; improved- -mild hypokalemia; replaced. -DVT prophylaxis with SCD's- no chemical prophylaxis due to liver disease/ thrombocytopenia. - Time Spent with Patient Total time spent providing and/or coordinating discharge services: Greater than 30 minutes Exam Vital signs: Vital Signs 04/30/18 12:00 04/30/18 16:00 04/30/18 20:00 Temperature 97.6 F 97.0 F L 97.7 F Pulse Rate 74 71 71 Respiratory Rate 20 20 18 Blood Pressure 133/79 164/80 H 144/69 H Pulse Oximetry 98 96 94 L 05/01/18 00:00 05/01/18 04:00 05/01/18 09:00 Temperature 98.2 F 96.5 F L 98.2 F Pulse Rate 68 65 68 Respiratory Rate 18 18 18 Blood Pressure 129/73 134/76 154/77 H Pulse Oximetry 93 L 93 L 98 Intake & Output 04/30/18 05/01/18 05/01/18 18:59 06:59 18:59 Intake Total 600 / 600 700 / 700 Output Total 1200 / 1200 1500 / 1500 Balance -600 / -600 -800 / -800 Weight 144.2 kg Intake: IV 100 / 100 Rocephin Inj 2,000 MG In NS Inj 100 / 100 100 ML @ 200 mls/hr IV.SIG Q24H LUCIO Rx#:[id number] Oral 600 / 600 600 / 600 Output: Urine 1200 / 1200 1500 / 1500 Other: Date of Last Bowel Movement 04/30/18 04/30/18 # Bowel Movements 1 - Constitutional no acute distress - Routine Respiratory Exam Present: CTA bilaterally - Routine Cardiovascular Exam Present: RRR - Routine Abdominal Exam Present: soft - Routine Extremities Exam Comments: bilateral pedal edema. - Routine Neurological Exam Present: alert, oriented X3 Results Procedures completed during hospitalization: none. Labs on day of discharge: Labs from last 24 hours 05/01/18 05/01/18 04/30/18 07:24 03:04 20:51 POC Glucose 274 H 358 H 326 H Total Bilirubin Direct Bilirubin Indirect Bilirubin AST ALT Alkaline Phosphatase Total Protein Albumin Lipase 04/30/18 04/30/18 04/30/18 16:53 11:56 06:08 POC Glucose 259 H 303 H Total Bilirubin 0.5 Direct Bilirubin 0.3 H Indirect Bilirubin 0.2 AST 26 ALT 36 Alkaline Phosphatase 135 H Total Protein 7.1 Albumin 2.1 L Lipase 88 - Impressions ITS Impressions Chest X-Ray 04/25/18 00:00 CONCLUSION: Mild congestive failure. No alveolar consolidation to suggest an inflammatory process. Abdomen Ultrasound 10/19/18 00:00 CONCLUSION: 1. No ascites. Chest CTA 04/27/18 00:00 CONCLUSION: 1. Cirrhosis and portal hypertension with splenomegaly and ascites. 2. No evidence for pulmonary embolism. 3. Bilateral subsegmental atelectatic changes are appreciated. Bile Acid Absorption NM 04/28/18 00:00 CONCLUSION: 1. No cystic duct or distal common bile duct obstruction. 2. Decreased ejection fraction after CCK administration suggesting possible chronic cholecystitis. Clinical correlation is recommended. Discharge Plan - Discharge Disposition Patient Disposition: 01 Discharge Home - Discharge Condition Condition: Fair - Physicians Team Attending Provider: Rigo Torres Other Providers: David Willard MD ; Carol Bosch MD ; Tyree Gale MD ; Eligible - Rxs /Orders / Referrals /Forms Prescriptions: New cefuroxime axetil 250 mg Tablet 500 mg PO Q12H 7 Days Qty: 28 RF: 0 insulin aspart U-100 [Novolog Flexpen U-100 Insulin] 100 unit/mL Insulin Pen See Label Instructions .ROUTE .COMPLEX 30 Days RF: 0 insulin detemir U-100 [Levemir FlexTouch U-100 Insuln] 100 unit/mL (3 mL) Insulin Pen 10 unit SUBCUT BID 30 Days Qty: 6 RF: 0 Continue gabapentin 300 mg Capsule 300 mg PO DAILY hydrocodone-acetaminophen [Vickery] 7.5-325 mg tablet 2 tab PO Q4-6H PRN (Reason: pain) Qty: 10 RF: 0 lisinopril-hydrochlorothiazide 10-12.5 mg Tablet 1 tab PO DAILY quetiapine [Seroquel] 200 mg Tablet 200 mg PO DAILY No Action metformin 1,000 mg Tablet 1,000 mg PO BID Ambulatory Orders / Order Sets / DME: [facility] (1 each) (Routine) Location: Determined by Patient Ordered By: Franci Pratt Referrals: Leslie Arita [Other] - See Instructions - Discharge Instructions Patient Printed Instructions: Cirrhosis (DC), Urinary Tract Infection in Men ( ED), Fever in Adults (ED), Ascites (DC) - Post Discharge Care Plan Care Plan Goals: Your Health Problems: Goals to Promote Your Health: * To prevent worsening of your condition * To maintain your health at the optimal level Directions to Meet Your Goals: * Take your medications as prescribed * Follow your dietary instruction * Follow activity as directed * Keep your appointments as scheduled * Take your immunizations and boosters as scheduled * If your symptoms worsen call your PCP * If no PCP go to Urgent Care or Emergency Room Smoking is dangerous to your health. Avoid second hand smoke. You may reach the 24-hour crisis hotline for domestic abuse at .
--- NOTE | 2018-05-01 09:11 | P.PNIM ---
Subjective Interval history: f/u; fever. looks and feels better today. no abdominal pain,nausea. remains afebrile. wants to go home. Physical Exam Vital signs: Vital Signs 04/30/18 12:00 04/30/18 16:00 04/30/18 20:00 Temperature 97.6 F 97.0 F L 97.7 F Pulse Rate 74 71 71 Respiratory Rate 20 20 18 Blood Pressure 133/79 164/80 H 144/69 H Pulse Oximetry 98 96 94 L 05/01/18 00:00 05/01/18 04:00 05/01/18 09:00 Temperature 98.2 F 96.5 F L 98.2 F Pulse Rate 68 65 68 Respiratory Rate 18 18 18 Blood Pressure 129/73 134/76 154/77 H Pulse Oximetry 93 L 93 L 98 Intake & Output 04/30/18 05/01/18 05/01/18 18:59 06:59 18:59 Intake Total 600 / 600 700 / 700 Output Total 1200 / 1200 1500 / 1500 Balance -600 / -600 -800 / -800 Weight 144.2 kg Intake: IV 100 / 100 Rocephin Inj 2,000 MG In NS Inj 100 / 100 100 ML @ 200 mls/hr IV.SIG Q24H LUCIO Rx#:[id number] Oral 600 / 600 600 / 600 Output: Urine 1200 / 1200 1500 / 1500 Other: Date of Last Bowel Movement 04/30/18 04/30/18 # Bowel Movements 1 - Constitutional no acute distress - Routine Respiratory Exam Present: CTA bilaterally - Routine Cardiovascular Exam Present: RRR - Routine Abdominal Exam Present: soft - Routine Extremities Exam Comments: bilateral pedal edema. - Routine Neurological Exam Present: alert, oriented X3 Results - Labs CBC & Chem 7: 04/30/18 06:08 04/28/18 07:20 Laboratory Results - last 24 hr 04/30/18 04/30/18 04/30/18 06:08 11:56 16:53 POC Glucose 303 H 259 H Total Bilirubin 0.5 Direct Bilirubin 0.3 H Indirect Bilirubin 0.2 AST 26 ALT 36 Alkaline Phosphatase 135 H Total Protein 7.1 Albumin 2.1 L Lipase 88 04/30/18 05/01/18 05/01/18 20:51 03:04 07:24 POC Glucose 326 H 358 H 274 H Total Bilirubin Direct Bilirubin Indirect Bilirubin AST ALT Alkaline Phosphatase Total Protein Albumin Lipase Microbiology 04/25/18 18:18 Blood - Peripheral Aerobic Blood Culture - Final No growth in 5 days 04/25/18 18:18 Blood - Peripheral Anaerobic Blood Culture - Final No growth in 5 days 04/25/18 15:10 Blood - Peripheral Aerobic Blood Culture - Final No growth in 5 days 04/25/18 15:10 Blood - Peripheral Anaerobic Blood Culture - Final No growth in 5 days - Procedures none. Assessment and Plan - Plan A/P - fever- possible UTI/ SBP- now fever has resolved. will continue with oral antibiotic- UC with strep- blood cultures from 04/25 negative- CXR with no infiltrate. recent abdominal CT with no acute intraabdominal abnormality. chest CTA with bilateral atelectasis and no PE on IV Rocephin- flu test negative- ID/GI following. -nausea; resolved. -thrombocytopenia- improving. due to Cirrhosis- no active bleed- continue to monitor closely- Hematology consult appreciated. -diabetes mellitus- continue with accu-check with SSI- A1c 9.7- continue Levemir and consulted hospice educator. -Cirrhosis- likely due to fatty liver and ZULETA- abdominal US with no ascites- continue IV antibiotic- HIDA with chronic cholecystitis- GI following. -hypertension; resume Lisinopril and continue to monitor BP. -acute kidney injury; improved- stopped IV fluid. -mild hypokalemia; replaced. -DVT prophylaxis with SCD's- no chemical prophylaxis due to liver disease/ thrombocytopenia. Discharge Planning: dc home today. see med list. f/u; pcp,GI and hematology. d/w the patient and . Luba was consulted before discharge. time spent 35 min.
== END 2018-05-01 18:36 | disposition home or self-care (01) ==
LOC: PHEDDLT 23:30 → PH3 23:30
PROVIDERS: ADMIT Internal Medicine; ATTEND Internal Medicine